=== PATIENT | male | born 1950 ===

== ENCOUNTER → 2022-12-05 | Outpatient (CLI) | payer MEDICARE, OTHER ==
[2022-12-05 12:56] VITALS: BP 119/69; PULSE 92; RESP 16; TEMP 98.6
--- NOTE | 2022-12-05 14:57 | P.PAINPG ---
PQRS Measure Charge Sheet Comment: HISTORY OF PRESENT ILLNESS: 72 yr old male as a referral from Dr Villagran presents today w severe and chronic neck pain secondary to DDD and facet arthropathy without myelopathy for evaluation. Pt states pain level is at 8/10 in intensity, constant, localized in the lower cervical spine, sharp, burning in character w shooting pain towards the BUEs. Pain is provoked by over activity. Pain is alleviated by PT in the past, chiropractic treatments and massage therapy in 2020, home exercise as tolerated, meds (Douglass, Ibu), heat, ice, topicals, repositioning and rest. PMH: OA, GERD, HTN, Hyperlipidemia, DM II, PSH: Denies SH: Negative x3 FH: Non contributory All: See list Meds: See list REVIEW OF ORGAN SYSTEMS: CONSTITUTIONAL: No fevers or chills. No recent weight loss. NEUROLOGICAL: + numbness and tingling along the distal extremities. No seizure disorders or headaches. MUSCULOSKELETAL: + pain PSYCHIATRIC: Denies current depression or suicidal thoughts. Physical Examinations : Constitutional : Cooperative , not in acute distress . Neurologic : Cranial nerve II to XII intact. No focal neurological deficits. Psychiatric : alert & oriented x 3. Matching mood & appropriate affect. Judgment & insight intact. Musculoskeletal : Cervical Spine Motor strength in the deltoid and biceps: Normal right side. Normal Left side Motor strength biceps and the wrist extensors: Normal right side . Normal left side Motor strength in the triceps muscle: Normal right side. Normal left side Deep tendon reflexes: Normal at the biceps. Normal at Brachioradialis. Normal at triceps Vertebral body tenderness to deep palpation over C6 Cervical facet loading test: positive bilaterally Spurling test: positive bilaterally Neck distraction test: positive bilaterally Bertha sign: positive bilaterally Lumbar spine Motor strength lower extremities ,thigh and legs 5/5 Right side , 5/5 Left side Deep tendon reflexes : Normal Knee Jerk. Normal Ankle Jerk Vertebral body tenderness over Lumbar facet Loading Test: positive Right / positive Left Range of motion of the lumbar spine Flexion 30 degrees, extension 10 degrees Straight Leg Raise test: Left/ Right positive at degree Deysi test: positive right / positive left. Severe tenderness over the Sacroiliac joint on the Right / Left sides Gaenslen test: positive bilaterally Seated flexion test: positive bilaterally. Sacral spine : Severe tenderness over the Sacroiliac joint: right side / left side Range of motion: Flexion of the lumbar spine <60 degrees Range of motion: Extension of the lumbar spine <20 degrees Gaenslen's Test positive Bridger's Test positive Deysi test: positive right side / left side Thigh Thrust Test Sacral Thrust Test Imaging: None on file Assessment/ Plan : Cervical DDD Recommendation of x ray cervical spine re: M50.30. May need additional testing if indicated. Admits to aspirin or anti- coagulant use or medical history of diabetes. Protocol for discontinuation/ continuation of medications smith procedure discussed. All questions answered. I have spent greater than 30 minutes on patient care today. Dr Ribeiro was available by phone for the evaluation of this patient. The time was used to review the medical records including relevant urine studies and Prescription history (MAPs), review of the available imaging, evaluation and examination of the patient, coordination of care with the medical staff and if applicable referring physicians, as well as creation of the medical record - Pain Location Neck Non-Pharmacological Interventions: Chiropractic Treatment, Heat, Home Exercise, Ice, Inactivity, Massage, Physical Therapy, Position/Reposition, Stretching Pharmacological Interventions: PRN Medication, Topical Medication Home Medications: Ambulatory Orders Aspirin EC [Ecotrin Low Dose] 81 mg PO DAILY 12/05/22 Ergocalciferol [Vitamin D2 (1250 Mcg = 91278 Iu)] 50,000 unit PO [id number] 12/05/22 HYDROcodone/APAP 10-325MG [[place] 10-325] 1 tab PO Q6HR PRN 12/05/22 Ibuprofen [Motrin] 800 mg PO Q8H 12/05/22 Isosorbide Dinitrate 5 mg PO BID 12/05/22 Isosorbide Mononitrate ER [Imdur] 30 mg PO DAILY 12/05/22 Lidocaine 5% Patch [Lidoderm] 1 patch TOPICAL DAILY 12/05/22 Nitroglycerin Sl Tabs [Nitrostat] 0.4 mg SUBLINGUAL Q5M PRN 12/05/22 Omeprazole [PriLOSEC] 20 mg PO AC-BID 12/05/22 carvediloL [Coreg] 3.125 mg PO BID 12/05/22 icosapent ethyL [Vascepa] 2 gm PO DAILY 12/05/22 metFORMIN HCL [Glucophage] 500 mg PO BID 12/05/22 Controlled Substance Measures - Controlled Substance Measures Is patient prescribed a controlled substance at discharge?: No
== END ==
LOC: PNWHC3 12:06
PROVIDERS: ATTEND Specialist
DX: M50.30 Other cervical disc degeneration, unspecified cervical region (principal); M19.90 Unspecified osteoarthritis, unspecified site; K21.9 Gastro-esophageal reflux disease without esophagitis; I10 Essential (primary) hypertension; E78.5 Hyperlipidemia, unspecified; E11.9 Type 2 diabetes mellitus without complications; Z79.82 Long term (current) use of aspirin; Z79.84 Long term (current) use of oral hypoglycemic drugs
CPT/HCPCS: 99202

== ENCOUNTER → 2022-12-05 | Outpatient (CLI) | payer MEDICARE, OTHER ==
--- NOTE | 2022-12-05 13:43 | XR ---
EXAMINATION TYPE: XR cervical spine limited DATE OF EXAM: 12/05/2022 1:34 PM INDICATION: Patient age:Male; 72 years old; Reason for study: M50.30 Cervical DD; COMPARISON: None TECHNIQUE: The cervical spine was imaged in frontal, lateral, odontoid and bilateral oblique. FINDINGS: The osseous structures show normal alignment without evidence of an acute fracture. Osteophyte format ion and degeneration changes most pronounced at C4-C6. The intervertebral disk spaces and straight mi ld narrowing at these levels. Pedicles are intact. Soft tissues are within normal limits. The odont oid appears intact. IMPRESSION: 1. No fracture or dislocation. 2. Mild degenerative disc disease changes of the cervical spine most proximal at C4-C6
== END | disposition home or self-care (01) ==
LOC: RADXRMAIN 13:10
PROVIDERS: ATTEND Physician Assistant Medical
DX: M50.322 Other cervical disc degeneration at C5-C6 level (principal)
CPT/HCPCS: 72040

== ENCOUNTER 2023-02-13 08:40 | Day surgery (SDC) | payer MEDICARE, OTHER ==
[2023-02-11 11:07] VITALS: BMI 30.2
[~2023-02-13 08:40] MED LIST: LACTATED RINGERS 1,000 ML IV SCH; LIDOCAINE 1% (10MG/ML) FOR IV START INTRADERMA PRN
[2023-02-13 09:16] VITALS: TEMP 97.7
[2023-02-13 09:30] LABS: Glucose,Whole Blood 104 mg/dL (70-110)
[2023-02-13] MEDS ORDERED: ROPIVACAINE 5 MG/ML 20 ML AMPULE ONE (09:33)
[2023-02-13] MEDS ORDERED: fentaNYL (PF) 50 MCG/ML 2 ML AMP ONE (09:33)
[2023-02-13] MEDS ORDERED: methylPREDNISolone ACETATE 40 MG/ML 1 ML VIAL ONE (09:33)
[2023-02-13] MEDS ORDERED: MIDAZOLAM 2 MG/2 ML VIAL ONE (09:33)
--- NOTE | 2023-02-13 10:01 | P.PCN ---
Date of Procedure: 02/13/23 Procedure(s) Performed: PREOPERATIVE DIAGNOSIS: 1-Cervical Spondylosis with Facet Arthropathy.without myelopathy. 2-cervical degenerative disc disease POSTOPERATIVE DIAGNOSIS: Same as preoperative diagnosis. PROCEDURES: Diagnostic bilateral C4 , C5 , and C6 medial branch blocks, with fluoroscopic guidance (fluoroscopy images available in radiology department ) ( to target the facet joint at bilateral C4- 5 , C5- 6 )# 1st ANESTHESIA:moderate sedation with Versed 2 mg , and fentanyl 50 micrograms. Sedation started 09:42 , end at 09:56 EBL: Minimal PROCEDURE INDICATION: The patient with neck pain secondary to cervical arthropathy unresponsive to more conservative treatments. PROCEDURE DESCRIPTION / TECHNIQUE: The patient was seen and identified in the preoperative area. Risks, benefits, complications, and alternatives were discussed with the patient, the patient agreed to proceed with the procedure and signed the consent. IV was started. Vital signs remained stable throughout the procedure. Patient was taken to the OR and time out was completed. The patient was placed in the prone position on the procedure table. A pillow was placed under the patients chest to increase the cervical interlaminar space. The cervical area was prepped and draped in the usual sterile fashion. Critical pause was taken. Vital signs were closely monitored during the procedure. Conscious sedation was used during the procedure to decrease patients anxiety. Using cross-table lateral fluoroscopy, the centroid of the trapezoid of right C4 , C5 and C6, was identified, marked, and localized with 1% lidocaine 1 ml at each level for skin and Sub Q infiltrations . Subsequently, a 22 G 3 spinal needle was advanced guided by fluoroscopy to the centroid of the trapezoid of Right C4 , C5, C6 . [place] tip position was confirmed at the centroid of the trapezoids of Right C4 , C5 ,C6 with anteroposterior fluoroscopy. Subsequently, 1.5 ml of preservative-free Ropivacaine 0.5% mixed with Depo- Medrol 20 mg and half ml of the mixture was injected after negative aspiration for blood and CSF. [place] was then removed intact the same procedure was repeated at the left C4 , C5 , and C6 levels. COMPLICATIONS: No acute complications. DISPOSITION / PLANS: The patient was placed in a supine position and transferred to the recovery area in a stable condition for observation and was discharged from the recovery room after meeting discharge criteria. Home discharge instructions given to the patient by the staff. The patient was reexamined prior to discharge. The patient will schedule a follow up in the clinic in 2-4 weeks.
[2023-02-13] MEDS ORDERED: IV FLUID CONTINUATION 1,000 ML IV ONE (10:03)
--- NOTE | 2023-02-13 10:07 | FL ---
Fluoroscopy INDICATION: Pain FINDINGS: Fluoroscopy time: 12 seconds. DAP: 0.39082 mGycm^2 Images obtained: 3. IMPRESSIONS: 1. Documentation of fluoroscopy.
[2023-02-13 10:42] VITALS: BP 122/76; PULSE 76; RESP 20
[2023-02-13] MEDS ORDERED: LACTATED RINGERS 1,000 ML IV SCH (10:44)
[2023-02-13] MEDS ORDERED: LIDOCAINE 1% (10MG/ML) FOR IV START INTRADERMA PRN (10:44)
== END 2023-02-13 10:30 | disposition home or self-care (01) ==
LOC: ORPAIN 08:40
PROVIDERS: ATTEND Specialist
DX: M50.322 Other cervical disc degeneration at C5-C6 level (principal); M47.812 Spondylosis without myelopathy or radiculopathy, cervical region
CPT/HCPCS: 99152; 64490; 64491; J2250; J1030; J3010; J2795

== ENCOUNTER → 2023-03-05 | Outpatient (CLI) | payer MEDICARE, OTHER ==
--- NOTE | 2023-03-05 14:59 | P.PAINPG ---
PQRS Measure Charge Sheet Comment: A 72 yr old male with a history of severe and chronic neck pain x 15 kyung secondary to cervical DDD and spondylosis with facet arthropathy without myelopathy presents today for evaluation s/p BL MBB C4-C5, C5-C6 #1. Pt states he experienced 85 % pain relief x 1 day s/p procedure. Pain level is provoked at 7/10 in intensity, constant, localized in the cervical spine, sharp in character w shooting towards the BUEs. Pain is provoked by lifting, rotation. Pain is alleviated with chiropractic treatments semi weekly w last visit 8 mo ago, PT x 6 wks in 2021 which didn't help, laying supine, heat, ice, repositioning and rest. Interventional pain procedures completed include BL MBB C4-C6 x1 Patient is currently on Icy Hot patches Patient denies any side effects of the medication(s), denies excessive drowsiness or sleepiness, denies suicidal ideation and reports that the current pain medication is helping to control the pain and improve activities of daily living. Patient denies any motor or sensory deficits. Patient denies any fever or night sweats, denies any change in the bowel movements or urination. Physical Examination: -Constitutional: Cooperative. Not in acute distress . - Neurologic: Cranial nerve II to XII intact. No focal neurological deficits. - Psychatric: Alert & oriented x 3. Matching mood & appropriate affect. Judgment and insight intact. - Musculoskeletal: Cervical spine: Muscle bulk/ tone/ strength in the bilateral upper extremities normal Vertebral body tenderness to palpation over Spurling test positive Distraction test positive Facet loading test positive TTP over BL C4-C5, C5-C6 facets Thoracic spine Muscle bulk / tone/ strength in the bilateral paraspinal muscles normal Vertebral body tender to palpation over Facet loading test positive TTP Lumbar spine: Motor bulk/ tone/ strength lower extremities , thigh and legs : 5/5 Deep tendon reflexes : Normal Knee Jerk. Normal Ankle Jerk . Vertebral body tenderness to palpation over Lumbar Facet Loading Test positive Straight Leg Raise: positive at 30 degrees right side/ left side Gaenslen's Test positive Sacral spine : Severe tenderness over the Sacroiliac joint: right side / left side Range of motion: Flexion of the lumbar spine <60 degrees Range of motion: Extension of the lumbar spine <20 degrees Gaenslen's Test positive R / L Deysi test: positive right side / left side Thigh Thrust Test positive R / L Sacral Thrust Test positive R/ L Assessment and plan: Chronic neck pain secondary to cervical DDD, spondylosis with facet arthropathy without myelopathy Recommendation of BL facet block of the medial branches C4-5, C6-6 #2. May need a series of injections, up until RFA, for optimal pain relief. Risks, benefits of procedure discussed and pt verbalized understanding. Admits to anticoagulant use or medical history of diabetes. Protocol for discontinuation/ continuation of medications smith procedure discussed. All questions answered. I have spent less than 30 minutes on patient care today. Dr Ribeiro was available by phone for the evaluation of this patient. The time was used to review the medical records including relevant urine studies and Prescription history (MAPs), review of the available imaging, evaluation and examination of the patient, coordination of care with the medical staff and if applicable referring physicians, as well as creation of the medical record PQRS Narrative: Hx Alcohol Use (MH) No Home Medications: Ambulatory Orders Aspirin EC [Ecotrin Low Dose] 81 mg PO DAILY 12/05/22 Ergocalciferol [Vitamin D2 (1250 Mcg = 44317 Iu)] 50,000 unit PO Q7D 12/05/22 Ibuprofen [Motrin] 800 mg PO Q8H 12/05/22 Isosorbide Dinitrate 5 mg PO BID 12/05/22 Lidocaine 5% Patch [Lidoderm] 1 patch TOPICAL DAILY PRN 12/05/22 Nitroglycerin Sl Tabs [Nitrostat] 0.4 mg SUBLINGUAL Q5M PRN 12/05/22 Omeprazole [PriLOSEC] 20 mg PO AC-BID 12/05/22 icosapent ethyL [Vascepa] 2 gm PO DAILY 12/05/22 metFORMIN HCL [Glucophage] 500 mg PO BID 12/05/22 HYDROcodone/APAP 7.5-325MG [[place] 7.5-325] 1 tab PO BID PRN 30 Days #60 tab 03/05/23 HYDROcodone/APAP 7.5-325MG [[place] 7.5-325] 1 tab PO BID PRN 30 Days #60 tab 03/05/23 Controlled Substance Measures - Controlled Substance Measures Is patient prescribed a controlled substance at discharge?: Yes When asked, does pt state using other controlled substances?: No If prescribed controlled substance>3 days was MAPS reviewed?: Yes If Rx opioid, was Start Talking consent form obtained?: Yes Was information provided regarding opioid addiction?: Yes
[2023-03-05 15:19] VITALS: BP 102/71; PULSE 72; RESP 18; TEMP 98
== END ==
LOC: PNWHC3 12:56
PROVIDERS: ATTEND Specialist
DX: M50.322 Other cervical disc degeneration at C5-C6 level (principal); M47.812 Spondylosis without myelopathy or radiculopathy, cervical region; G89.29 Other chronic pain; Z79.82 Long term (current) use of aspirin
CPT/HCPCS: 99211

== ENCOUNTER 2023-04-03 10:47 | Day surgery (SDC) | payer MEDICARE, OTHER ==
[2023-04-03 11:17] VITALS: TEMP 97.1
[2023-04-03 11:19] LABS: Glucose,Whole Blood 91 mg/dL (70-110)
[2023-04-03] MEDS ORDERED: MIDAZOLAM 2 MG/2 ML VIAL ONE (11:28)
[2023-04-03] MEDS ORDERED: ROPIVACAINE 5 MG/ML 20 ML AMPULE ONE (11:28)
[2023-04-03] MEDS ORDERED: fentaNYL (PF) 50 MCG/ML 2 ML AMP ONE (11:28)
[2023-04-03] MEDS ORDERED: methylPREDNISolone ACETATE 40 MG/ML 1 ML VIAL ONE (11:28)
--- NOTE | 2023-04-03 11:51 | P.PCN ---
Date of Procedure: 04/03/23 Procedure(s) Performed: PREOPERATIVE DIAGNOSIS: 1-Cervical Spondylosis with Facet Arthropathy.without myelopathy. 2-cervical degenerative disc disease POSTOPERATIVE DIAGNOSIS: Same as preoperative diagnosis. PROCEDURES: Diagnostic bilateral C4 , C5 , and C6 medial branch blocks, with fluoroscopic guidance (fluoroscopy images available in radiology department ) ( to target the facet joint at bilateral C4- 5 , C5- 6 )#2nd ANESTHESIA:moderate sedation with Versed 2 mg , and fentanyl 100 micrograms. Sedation started 1128, end at 1147 EBL: Minimal PROCEDURE INDICATION: The patient with neck pain secondary to cervical arthropathy unresponsive to more conservative treatments. PROCEDURE DESCRIPTION / TECHNIQUE: The patient was seen and identified in the preoperative area. Risks, benefits, complications, and alternatives were discussed with the patient, the patient agreed to proceed with the procedure and signed the consent. IV was started. Vital signs remained stable throughout the procedure. Patient was taken to the OR and time out was completed. The patient was placed in the lateral position on the procedure table. . The cervical area was prepped and draped in the usual sterile fashion. Critical pause was taken. Vital signs were closely monitored during the procedure. Conscious sedation was used during the procedure to decrease patients anxiety. Using cross-table lateral fluoroscopy, the centroid of the trapezoid of right C4 , C5 and C6, was identified, marked, and localized with 1% lidocaine 1 ml at each level for skin and Sub Q infiltrations . Subsequently, a 22 G 3 spinal needle was advanced guided by fluoroscopy to the centroid of the trapezoid of Right C4 , C5, C6 . [place] tip position was confirmed at the centroid of the trapezoids of Right C4 , C5 ,C6 with anteroposterior fluoroscopy. Subsequently, 1.5 ml of preservative-free Ropivacaine 0.5% mixed with Depo- Medrol 20 mg and half ml of the mixture was injected after negative aspiration for blood and CSF. [place] was then removed intact the same procedure was repeated at the left C4 , C5 , and C6 levels. COMPLICATIONS: No acute complications. DISPOSITION / PLANS: The patient was placed in a supine position and transferred to the recovery area in a stable condition for observation and was discharged from the recovery room after meeting discharge criteria. Home discharge instructions given to the patient by the staff. The patient was reexamined prior to discharge. The patient will schedule a follow up in the clinic in 2-4 weeks. note= patient placed in prone position was not able to visualize C6 vertebral for this reason the procedure was done and a lateral position
[2023-04-03 11:59] VITALS: RESP 18
[2023-04-03 12:13] VITALS: BP 119/78; PULSE 69
--- NOTE | 2023-04-03 12:44 | FL ---
Fluoroscopy INDICATION: Pain FINDINGS: Fluoroscopy time: 3 seconds. Total dose area product (DAP) in uGy*m?, mGy*cm? (or similar): 0.43204 Images obtained: 3. IMPRESSIONS: 1. Documentation of fluoroscopy.
== END 2023-04-03 12:54 | disposition home or self-care (01) ==
LOC: ORPAIN 10:47
PROVIDERS: ATTEND Specialist
DX: M50.322 Other cervical disc degeneration at C5-C6 level (principal); M47.812 Spondylosis without myelopathy or radiculopathy, cervical region

== ENCOUNTER → 2023-04-24 | Outpatient (CLI) | payer MEDICARE, OTHER ==
[2023-04-24 13:29] VITALS: BP 115/71; PULSE 72; RESP 18; TEMP 98
--- NOTE | 2023-04-24 14:40 | P.PAINPG ---
PQRS Measure Charge Sheet Comment: A 72 yr old male w daughter & granddaughter at side with a history of severe and chronic neck pain secondary to cervical DDD and spondylosis with facet arthropathy without myelopathy presents today for evaluation s/p BL MBB C4-C5, C5-C6 #2. Pt states he experienced 80 % pain relief x 2 days s/p procedure. Pain level is provoked at 8/10 in intensity, constant, localized in the cervical spine, sharp in character w shooting towards the BL shoulders and BL hands. Pain is provoked by lifting and hyperextension. Pain is alleviated with injections, medications, topical, PT x 6 wks in Jun 2022, chiropractic treatments in 2020, heat, ice, repositioning and rest. Interventional pain procedures completed include BL MBB C4-C6 x2 Patient is currently on [place] Patient denies any side effects of the medication(s), denies excessive drowsiness or sleepiness, denies suicidal ideation and reports that the current pain medication is helping to control the pain and improve activities of daily living. Patient denies any motor or sensory deficits. Patient denies any fever or night sweats, denies any change in the bowel movements or urination. Physical Examination: -Constitutional: Cooperative. Not in acute distress . - Neurologic: Cranial nerve II to XII intact. No focal neurological deficits. - Psychatric: Alert & oriented x 3. Matching mood & appropriate affect. Judgment and insight intact. - Musculoskeletal: Cervical spine: Muscle bulk/ tone/ strength in the bilateral upper extremities normal Vertebral body tenderness to palpation over Spurling test positive Distraction test positive Facet loading test positive over BL C4-C5, C5-C6 Thoracic spine Muscle bulk / tone/ strength in the bilateral paraspinal muscles normal Vertebral body tender to palpation over Facet loading test positive TTP Lumbar spine: Motor bulk/ tone/ strength lower extremities , thigh and legs : 5/5 Deep tendon reflexes : Normal Knee Jerk. Normal Ankle Jerk . Vertebral body tenderness to palpation over Lumbar Facet Loading Test positive Straight Leg Raise: positive at 30 degrees right side/ left side Gaenslen's Test positive Sacral spine : Severe tenderness over the Sacroiliac joint: right side / left side Range of motion: Flexion of the lumbar spine <60 degrees Range of motion: Extension of the lumbar spine <20 degrees Gaenslen's Test positive R / L Deysi test: positive right side / left side Thigh Thrust Test positive R / L Sacral Thrust Test positive R/ L Assessment and plan: Chronic neck pain secondary to cervical DDD, spondylosis with facet arthropathy without myelopathy Recommendation of BL RFA C4-C5, C5-C6. Pt exhibited sufficient and satisfactory pain relief w prior facet blocks of the medial branches. Risks, benefits of procedure discussed and pt verbalized understanding. Admits to anticoagulant use or medical history of diabetes. Protocol for discontinuation/ continuation of medications smith procedure discussed. Minimal anesthesia provided, if clinically indicated, consisting of Versed and Fentanyl. [place] 7.5/325mg #60 w 1 RF. All questions answered. I have spent less than 30 minutes on patient care today. Dr Ribeiro was available by phone for the evaluation of this patient. The time was used to review the medical records including relevant urine studies and Prescription history (MAPs), review of the available imaging, evaluation and examination of the patient, coordination of care with the medical staff and if applicable referring physicians, as well as creation of the medical record PQRS Narrative: Hx Alcohol Use (MH) No Home Medications: Ambulatory Orders Aspirin EC [Ecotrin Low Dose] 81 mg PO DAILY 12/05/22 Ergocalciferol [Vitamin D2 (1250 Mcg = 29130 Iu)] 50,000 unit PO Q7D 12/05/22 Isosorbide Dinitrate 5 mg PO BID 12/05/22 Lidocaine 5% Patch [Lidoderm] 1 patch TOPICAL DAILY PRN 12/05/22 Nitroglycerin Sl Tabs [Nitrostat] 0.4 mg SUBLINGUAL Q5M PRN 12/05/22 Omeprazole [PriLOSEC] 20 mg PO AC-BID 12/05/22 icosapent ethyL [Vascepa] 2 gm PO DAILY 12/05/22 metFORMIN HCL [Glucophage] 500 mg PO BID 12/05/22 HYDROcodone/APAP 7.5-325MG [[place] 7.5-325] 1 tab PO BID PRN 23 Days #45 tab 04/24/23 HYDROcodone/APAP 7.5-325MG [[place] 7.5-325] 1 tab PO BID PRN 30 Days #60 tab 04/24/23 Controlled Substance Measures - Controlled Substance Measures Is patient prescribed a controlled substance at discharge?: No
== END ==
LOC: PNWHC3 12:22
PROVIDERS: ATTEND Specialist
DX: M50.322 Other cervical disc degeneration at C5-C6 level (principal); M47.812 Spondylosis without myelopathy or radiculopathy, cervical region; G89.29 Other chronic pain; Z51.81 Encounter for therapeutic drug level monitoring
CPT/HCPCS: 80307; 80364; 99211

== ENCOUNTER → 2023-06-19 | Outpatient (CLI) | payer MEDICARE, OTHER ==
[2023-06-19 10:32] VITALS: BP 107/67; PULSE 59; RESP 14; TEMP 97.9
--- NOTE | 2023-06-19 14:48 | P.PAINPG ---
PQRS Measure Charge Sheet Comment: A 72 yr old male w daughter & granddaughter at side with a history of severe and chronic neck pain secondary to cervical DDD and spondylosis with facet arthropathy without myelopathy presents today for medication refills. Pt did not get cardiac clearance off of ASA to complete procedure. Was told he may have clearance within 1 yr. Pain level is provoked at 8/10 in intensity, constant, localized in the cervical spine, sharp in character w shooting towards the BL shoulders and BL hands. Pain is provoked by lifting and hyperextension. Pain is alleviated with injections, medications, topical, PT x 6 wks in Jun 2022, chiropractic treatments in 2020, heat, ice, repositioning and rest. Oswestry axial pain score of 37. Interventional pain procedures completed include BL MBB C4-C6 x2 Patient is currently on [place] Patient denies any side effects of the medication(s), denies excessive drowsiness or sleepiness, denies suicidal ideation and reports that the current pain medication is helping to control the pain and improve activities of daily living. Patient denies any motor or sensory deficits. Patient denies any fever or night sweats, denies any change in the bowel movements or urination. Physical Examination: -Constitutional: Cooperative. Not in acute distress . - Neurologic: Cranial nerve II to XII intact. No focal neurological deficits. - Psychatric: Alert & oriented x 3. Matching mood & appropriate affect. Judgment and insight intact. - Musculoskeletal: Cervical spine: Muscle bulk/ tone/ strength in the bilateral upper extremities normal Vertebral body tenderness to palpation over Spurling test positive Distraction test positive Facet loading test positive over BL C4-C5, C5-C6 Thoracic spine Muscle bulk / tone/ strength in the bilateral paraspinal muscles normal Vertebral body tender to palpation over Facet loading test positive TTP Lumbar spine: Motor bulk/ tone/ strength lower extremities , thigh and legs : 5/5 Deep tendon reflexes : Normal Knee Jerk. Normal Ankle Jerk . Vertebral body tenderness to palpation over Lumbar Facet Loading Test positive Straight Leg Raise: positive at 30 degrees right side/ left side Gaenslen's Test positive Sacral spine : Severe tenderness over the Sacroiliac joint: right side / left side Range of motion: Flexion of the lumbar spine <60 degrees Range of motion: Extension of the lumbar spine <20 degrees Gaenslen's Test positive R / L Deysi test: positive right side / left side Thigh Thrust Test positive R / L Sacral Thrust Test positive R/ L Assessment and plan: Chronic neck pain secondary to cervical DDD, spondylosis with facet arthropathy without myelopathy Recommendation of medication management. UDS reviewed and consistent. Opiate/ narcotic agreement up to date. [place] 10/325mg #60 w 1 RF. All questions answered. I have spent less than 30 minutes on patient care today. Dr Ribeiro was available by phone for the evaluation of this patient. The time was used to review the medical records including relevant urine studies and Prescription history (MAPs), review of the available imaging, evaluation and examination of the patient, coordination of care with the medical staff and if applicable referring physicians, as well as creation of the medical record PQRS Narrative: Hx Alcohol Use (MH) No Home Medications: Ambulatory Orders Aspirin EC [Ecotrin Low Dose] 81 mg PO DAILY 12/05/22 Ergocalciferol [Vitamin D2 (1250 Mcg = 49729 Iu)] 50,000 unit PO Q7D 12/05/22 Isosorbide Dinitrate 5 mg PO BID 12/05/22 Lidocaine 5% Patch [Lidoderm] 1 patch TOPICAL DAILY PRN 12/05/22 Nitroglycerin Sl Tabs [Nitrostat] 0.4 mg SUBLINGUAL Q5M PRN 12/05/22 Omeprazole [PriLOSEC] 20 mg PO AC-BID 12/05/22 icosapent ethyL [Vascepa] 2 gm PO DAILY 12/05/22 metFORMIN HCL [Glucophage] 500 mg PO BID 12/05/22 HYDROcodone/APAP 7.5-325MG [[place] 7.5-325] 1 tab PO BID PRN 23 Days #45 tab 04/24/23 HYDROcodone/APAP 7.5-325MG [[place] 7.5-325] 1 tab PO BID PRN 30 Days #60 tab 04/24/23 Controlled Substance Measures - Controlled Substance Measures Is patient prescribed a controlled substance at discharge?: Yes When asked, does pt state using other controlled substances?: No If prescribed controlled substance>3 days was MAPS reviewed?: Yes
== END ==
LOC: PNWHC3 09:39
PROVIDERS: ATTEND Specialist
DX: M50.321 Other cervical disc degeneration at C4-C5 level (principal); M50.322 Other cervical disc degeneration at C5-C6 level; M47.812 Spondylosis without myelopathy or radiculopathy, cervical region; G89.29 Other chronic pain; Z79.82 Long term (current) use of aspirin
CPT/HCPCS: 99211

== ENCOUNTER → 2023-10-08 | Outpatient (CLI) | payer MEDICARE, OTHER ==
[2023-10-08 14:16] VITALS: BP 104/64; PULSE 69; RESP 15; TEMP 98.4
--- NOTE | 2023-10-08 15:06 | P.PAINPG ---
PQRS Measure Charge Sheet Comment: A 73 yr old male with a history of severe and chronic neck pain x 2 yrs secondary to cervical DDD and spondylosis with facet arthropathy without myelopathy presents today for medication refills. Pain level is provoked at 8/10 in intensity, constant, predominantly axial and localized in the cervical spine, sharp in character w occasional shooting towards the BL shoulders and BL hands. Pain is provoked by lifting and hyperextension. Pain is alleviated with injections, medications, topical, PT x 6 wks in Jun 2022, chiropractic treatments in 2020, heat, ice, repositioning and rest. Interventional pain procedures completed include BL MBB C4-C6 x2 Patient is currently on [place] 10/325mg # Patient denies any side effects of the medication(s), denies excessive drowsiness or sleepiness, denies suicidal ideation and reports that the current pain medication is helping to control the pain and improve activities of daily living. Patient denies any motor or sensory deficits. Patient denies any fever or night sweats, denies any change in the bowel movements or urination. Physical Examination: -Constitutional: Cooperative. Not in acute distress . - Neurologic: Cranial nerve II to XII intact. No focal neurological deficits. - Psychatric: Alert & oriented x 3. Matching mood & appropriate affect. Judgmen t and insight intact. - Musculoskeletal: Cervical spine: Muscle bulk/ tone/ strength in the bilateral upper extremities normal Vertebral body tenderness to palpation over Spurling test positive Distraction test positive Facet loading test positive over BL C4-C5, C5-C6 Thoracic spine Muscle bulk / tone/ strength in the bilateral paraspinal muscles normal Vertebral body tender to palpation over Facet loading test positive TTP Lumbar spine: Motor bulk/ tone/ strength lower extremities , thigh and legs : 5/5 Deep tendon reflexes : Normal Knee Jerk. Normal Ankle Jerk . Vertebral body tenderness to palpation over Lumbar Facet Loading Test positive Straight Leg Raise: positive at 30 degrees right side/ left side Gaenslen's Test positive Sacral spine : Severe tenderness over the Sacroiliac joint: right side / left side Range of motion: Flexion of the lumbar spine <60 degrees Range of motion: Extension of the lumbar spine <20 degrees Gaenslen's Test positive R / L Deysi test: positive right side / left side Thigh Thrust Test positive R / L Sacral Thrust Test positive R/ L Assessment and plan: Chronic neck pain secondary to cervical DDD, spondylosis with facet arthropathy without myelopathy Recommendation of medication management. UDS reviewed and consistent. Opiate/ narcotic agreement up to date. [place] 10/325mg #0 w 1 RF. All questions answered. I have spent less than 30 minutes on patient care today. Dr Ribeiro was available by phone for the evaluation of this patient. The time was used to review the medical records including relevant urine studies and Prescription history (MAPs), review of the available imaging, evaluation and examination of the patient, coordination of care with the medical staff and if applicable referring physicians, as well as creation of the medical record PQRS Narrative: Narcotic Agreement Date Signed 08/14/23 Hx Alcohol Use (MH) No Home Medications: Ambulatory Orders Aspirin EC [Ecotrin Low Dose] 81 mg PO DAILY 12/05/22 Lidocaine 5% Patch [Lidoderm] 1 patch TOPICAL DAILY PRN 12/05/22 Nitroglycerin Sl Tabs [Nitrostat] 0.4 mg SUBLINGUAL Q5M PRN 12/05/22 Omeprazole [PriLOSEC] 20 mg PO AC-BID 12/05/22 metFORMIN HCL [Glucophage] 500 mg PO BID 12/05/22 HYDROcodone/APAP 7.5-325MG [[place] 7.5-325] 1 tab PO BID PRN 23 Days #45 tab 04/24/23 HYDROcodone/APAP 7.5-325MG [[place] 7.5-325] 1 tab PO BID PRN 30 Days #60 tab 04/24/23 Clopidogrel [Plavix] 75 mg PO DAILY 06/19/23 Linaclotide [Linzess] 290 mcg PO DAILY 06/19/23 Metoprolol Succinate (ER) [Toprol Xl] 25 mg PO DAILY 06/19/23 [place]-3 Fatty Acids/Fish Oil [[place]-3 Fish Oil 1,200 mg Sfgl] 1 each PO BID 06/19/23 Rosuvastatin [Crestor] 20 mg PO DAILY 06/19/23 icosapent ethyL [Vascepa] 2 gm PO BID 06/19/23 HYDROcodone/APAP 10-325MG [[place] 10-325] 1 tab PO BID PRN 30 Days #60 tab 10/08/23 HYDROcodone/APAP 10-325MG [[place] 10-325] 1 tab PO BID PRN 30 Days #60 tab 10/08/23 Controlled Substance Measures - Controlled Substance Measures Is patient prescribed a controlled substance at discharge?: Yes When asked, does pt state using other controlled substances?: No If prescribed controlled substance>3 days was MAPS reviewed?: Yes
== END ==
LOC: PNWHC3 12:56
PROVIDERS: ATTEND Specialist
DX: M50.321 Other cervical disc degeneration at C4-C5 level (principal); M50.322 Other cervical disc degeneration at C5-C6 level; M47.812 Spondylosis without myelopathy or radiculopathy, cervical region; G89.29 Other chronic pain; Z79.82 Long term (current) use of aspirin
CPT/HCPCS: 99211

== ENCOUNTER → 2023-12-25 | Outpatient (CLI) | payer MEDICARE, OTHER ==
[2023-12-25 14:05] VITALS: BP 118/76; PULSE 74; RESP 16; TEMP 98.1
--- NOTE | 2023-12-25 14:37 | P.PAINPG ---
Objective - Vital Signs Vital signs: Intake & Output 12/24/23 12/25/23 12/25/23 18:59 06:59 18:59 Weight 89.811 kg PQRS Measure Charge Sheet Comment: A 73 yr old male with a history of severe and chronic neck pain x 2 yrs secondary to cervical DDD and spondylosis with facet arthropathy without myelopathy presents today for medication refills. Pain level is provoked at 8/10 in intensity, constant, predominantly axial and localized in the cervical spine, sharp in character w occasional shooting towards the BL shoulders and BL hands. Pain is provoked by lifting and hyperextension. Pain is alleviated with injections, medications, topical, PT x 6 wks in Jun 2022, chiropractic treatments in 2020, heat, ice, repositioning and rest. Interventional pain procedures completed include BL MBB C4-C6 x2 Patient is currently on [place] 10/325mg # Patient denies any side effects of the medication(s), denies excessive drowsiness or sleepiness, denies suicidal ideation and reports that the current pain medication is helping to control the pain and improve activities of daily living. Patient denies any motor or sensory deficits. Patient denies any fever or night sweats, denies any change in the bowel movements or urination. Physical Examination: -Constitutional: Cooperative. Not in acute distress . - Neurologic: Cranial nerve II to XII intact. No focal neurological deficits. - Psychatric: Alert & oriented x 3. Matching mood & appropriate affect. Judgment and insight intact. - Musculoskeletal: Cervical spine: Muscle bulk/ tone/ strength in the bilateral upper extremities normal Vertebral body tenderness to palpation over Spurling test positive Distraction test positive Facet loading test positive over BL C4-C5, C5-C6 Thoracic spine Muscle bulk / tone/ strength in the bilateral paraspinal muscles normal Vertebral body tender to palpation over Facet loading test positive TTP Lumbar spine: Motor bulk/ tone/ strength lower extremities , thigh and legs : 5/5 Deep tendon reflexes : Normal Knee Jerk. Normal Ankle Jerk . Vertebral body tenderness to palpation over Lumbar Facet Loading Test positive Straight Leg Raise: positive at 30 degrees right side/ left side Gaenslen's Test positive Sacral spine : Severe tenderness over the Sacroiliac joint: right side / left side Range of motion: Flexion of the lumbar spine <60 degrees Range of motion: Extension of the lumbar spine <20 degrees Gaenslen's Test positive R / L Deysi test: positive right side / left side Thigh Thrust Test positive R / L Sacral Thrust Test positive R/ L Assessment and plan: Chronic neck pain secondary to cervical DDD, spondylosis with facet arthropathy without myelopathy Recommendation of medication management. UDS fr 04/24/23 reviewed and consistent. Recollected UDS 12/25/23. Opiate/ narcotic agreement up to date. [place] 10/325mg #60 and Robaxin 750mg #60 w 1 RF. All questions answered. I have spent less than 30 minutes on patient care today. Dr Ribeiro was available by phone for the evaluation of this patient. The time was used to review the medical records including relevant urine studies and Prescription history (MAPs), review of the available imaging, evaluation and examination of the patient, coordination of care with the medical staff and if applicable referring physicians, as well as creation of the medical record - Pain Location Bilateral Lower Neck Non-Pharmacological Interventions: Physical Therapy Pharmacological Interventions: PRN Medication, Scheduled Medication, Topical Medication PQRS Narrative: Narcotic Agreement Date Signed 08/14/23 Hx Alcohol Use (MH) No Home Medications: Ambulatory Orders Aspirin EC [Ecotrin Low Dose] 81 mg PO DAILY 12/05/22 Lidocaine 5% Patch [Lidoderm] 1 patch TOPICAL DAILY PRN 12/05/22 Nitroglycerin Sl Tabs [Nitrostat] 0.4 mg SUBLINGUAL Q5M PRN 12/05/22 Omeprazole [PriLOSEC] 20 mg PO AC-BID 12/05/22 metFORMIN HCL [Glucophage] 500 mg PO BID 12/05/22 Clopidogrel [Plavix] 75 mg PO DAILY 06/19/23 Linaclotide [Linzess] 290 mcg PO DAILY 06/19/23 Metoprolol Succinate (ER) [Toprol Xl] 25 mg PO DAILY 06/19/23 [place]-3 Fatty Acids/Fish Oil [[place]-3 Fish Oil 1,200 mg Sfgl] 1 each PO BID 06/19/23 Rosuvastatin [Crestor] 20 mg PO DAILY 06/19/23 icosapent ethyL [Vascepa] 2 gm PO BID 06/19/23 HYDROcodone/APAP 10-325MG [[place] 10-325] 1 tab PO BID PRN 30 Days #60 tab 12/25/23 HYDROcodone/APAP 10-325MG [[place] 10-325] 1 tab PO BID PRN 30 Days #60 tab 12/25/23 methocarbamoL [Robaxin-750] 750 mg PO BID PRN 30 Days #60 tab 12/25/23 Controlled Substance Measures - Controlled Substance Measures Is patient prescribed a controlled substance at discharge?: Yes When asked, does pt state using other controlled substances?: No If prescribed controlled substance>3 days was MAPS reviewed?: Yes
== END ==
LOC: PNWHC3 12:49
PROVIDERS: ATTEND Specialist
DX: M50.321 Other cervical disc degeneration at C4-C5 level (principal); M50.322 Other cervical disc degeneration at C5-C6 level; M47.812 Spondylosis without myelopathy or radiculopathy, cervical region; G89.29 Other chronic pain; Z79.82 Long term (current) use of aspirin
CPT/HCPCS: 80307; 99212

== ENCOUNTER → 2024-02-19 | Outpatient (CLI) | payer MEDICARE, OTHER ==
[2024-02-19 13:41] VITALS: BP 107/71; PULSE 74; RESP 16; TEMP 98.1
--- NOTE | 2024-02-19 14:03 | P.PAINPG ---
PQRS Measure Charge Sheet Comment: A 73 yr old male with a history of severe and chronic neck pain x 2 yrs secondary to cervical DDD and spondylosis with facet arthropathy without myelopathy presents today for medication refills. Pain level is provoked at 7 /10 in intensity, constant, predominantly axial and localized in the cervical spine, sharp in character w occasional shooting towards the BL shoulders and BL hands. Pain is provoked by lifting and hyperextension. Pain is alleviated with injections, medications, topical, PT x 6 wks in Jun 2022, chiropractic treatments in 2020, heat, ice, repositioning and rest. Interventional pain procedures completed include BL MBB C4-C6 x2 Patient is currently on [place] 10/325mg # Patient denies any side effects of the medication(s), denies excessive drowsiness or sleepiness, denies suicidal ideation and reports that the current pain medication is helping to control the pain and improve activities of daily living. Patient denies any motor or sensory deficits. Patient denies any fever or night sweats, denies any change in the bowel movements or urination. Physical Examination: -Constitutional: Cooperative. Not in acute distress . - Neurologic: Cranial nerve II to XII intact. No focal neurological deficits. - Psychatric: Alert & oriented x 3. Matching mood & appropriate affect. Judgmen t and insight intact. - Musculoskeletal: Cervical spine: Muscle bulk/ tone/ strength in the bilateral upper extremities normal Vertebral body tenderness to palpation over Spurling test positive Distraction test positive Facet loading test positive over BL C4-C5, C5-C6 Thoracic spine Muscle bulk / tone/ strength in the bilateral paraspinal muscles normal Vertebral body tender to palpation over Facet loading test positive TTP Lumbar spine: Motor bulk/ tone/ strength lower extremities , thigh and legs : 5/5 Deep tendon reflexes : Normal Knee Jerk. Normal Ankle Jerk . Vertebral body tenderness to palpation over Lumbar Facet Loading Test positive Straight Leg Raise: positive at 30 degrees right side/ left side Gaenslen's Test positive Sacral spine : Severe tenderness over the Sacroiliac joint: right side / left side Range of motion: Flexion of the lumbar spine <60 degrees Range of motion: Extension of the lumbar spine <20 degrees Gaenslen's Test positive R / L Deysi test: positive right side / left side Thigh Thrust Test positive R / L Sacral Thrust Test positive R/ L Assessment and plan: Chronic neck pain secondary to cervical DDD, spondylosis with facet arthropathy without myelopathy Recommendation of medication management. UDS fr 12/25/23 reviewed and consistent. Opiate/ narcotic agreement up to date. [place] 10/325mg #60 and Robaxin 750mg #60 w [address] Sutherland re: possible CTS Contact information provided. All questions answered. I have spent less than 30 minutes on patient care today. Dr Ribeiro was available by phone for the evaluation of this patient. The time was used to review the medical records including relevant urine studies and Prescription history (MAPs), review of the available imaging, evaluation and examination of the patient, coordination of care with the medical staff and if applicable referring physicians, as well as creation of the medical record PQRS Narrative: Narcotic Agreement Date Signed 08/14/23 Hx Alcohol Use (MH) No Home Medications: Ambulatory Orders Aspirin EC [Ecotrin Low Dose] 81 mg PO DAILY 12/05/22 Lidocaine 5% Patch [Lidoderm] 1 patch TOPICAL DAILY PRN 12/05/22 Nitroglycerin Sl Tabs [Nitrostat] 0.4 mg SUBLINGUAL Q5M PRN 12/05/22 Omeprazole [PriLOSEC] 20 mg PO AC-BID 12/05/22 metFORMIN HCL [Glucophage] 500 mg PO BID 12/05/22 Clopidogrel [Plavix] 75 mg PO DAILY 06/19/23 Linaclotide [Linzess] 290 mcg PO DAILY 06/19/23 Metoprolol Succinate (ER) [Toprol Xl] 25 mg PO DAILY 06/19/23 [place]-3 Fatty Acids/Fish Oil [[place]-3 Fish Oil 1,200 mg Sfgl] 1 each PO BID 06/19/23 Rosuvastatin [Crestor] 20 mg PO DAILY 06/19/23 icosapent ethyL [Vascepa] 2 gm PO BID 06/19/23 HYDROcodone/APAP 10-325MG [[place] 10-325] 1 tab PO BID PRN 30 Days #60 tab 02/19/24 HYDROcodone/APAP 10-325MG [[place] 10-325] 1 tab PO BID PRN 30 Days #60 tab 02/19/24 HYDROcodone/APAP 10-325MG [[place] 10-325] 1 tab PO BID PRN 30 Days #60 tab 02/19/24 methocarbamoL [Robaxin-750] 750 mg PO BID PRN 30 Days #60 tab 02/19/24 Controlled Substance Measures - Controlled Substance Measures Is patient prescribed a controlled substance at discharge?: Yes When asked, does pt state using other controlled substances?: No If prescribed controlled substance>3 days was MAPS reviewed?: Yes
== END ==
LOC: PNWHC3 12:37
PROVIDERS: ATTEND Specialist
DX: M50.321 Other cervical disc degeneration at C4-C5 level (principal); M50.322 Other cervical disc degeneration at C5-C6 level; M47.812 Spondylosis without myelopathy or radiculopathy, cervical region; G89.29 Other chronic pain
CPT/HCPCS: 99211

== ENCOUNTER → 2024-04-15 | Outpatient (CLI) | payer MEDICARE, OTHER ==
[2024-04-15 14:01] VITALS: BP 111/72; PULSE 67; RESP 16
--- NOTE | 2024-04-15 14:53 | P.PAINPG ---
Objective - Vital Signs Vital signs: Vital Signs Temp Pulse Resp 16 04/15/24 13:24 BP Pulse Ox FiO2 PQRS Measure Charge Sheet Mode of Arrival: Ambulatory Comment: A 73 yr old male with a history of severe and chronic neck pain x 2 yrs secondary to cervical DDD and spondylosis with facet arthropathy without myelopathy presents today for medication refills. Pain level is provoked at 7 /10 in intensity, constant, predominantly axial and localized in the cervical spine, sharp in character w occasional shooting towards the head. Pain is provoked by lifting and hyperextension. Pain is alleviated with injections, medications, topical, PT x 5 wks which ended in Feb 2024, physician guided exercises/ stretches daily since Feb 2024, chiropractic treatments in 2020, heat, ice, repositioning and rest. Cervical disability score of 26. Interventional pain procedures completed include BL MBB C4-C6 x2 Patient is currently on [place] 10/325mg # Patient denies any side effects of the medication(s), denies excessive drowsiness or sleepiness, denies suicidal ideation and reports that the current pain medication is helping to control the pain and improve activities of daily living. Patient denies any motor or sensory deficits. Patient denies any fever or night sweats, denies any change in the bowel movements or urination. Physical Examination: -Constitutional: Cooperative. Not in acute distress . - Neurologic: Cranial nerve II to XII intact. No focal neurological deficits. - Psychatric: Alert & oriented x 3. Matching mood & appropriate affect. Judgment and insight intact. - Musculoskeletal: Cervical spine: Muscle bulk/ tone/ strength in the bilateral upper extremities normal Vertebral body tenderness to palpation over Spurling test positive Distraction test positive Facet loading test positive over BL C4-C5, C5-C6 Thoracic spine Muscle bulk / tone/ strength in the bilateral paraspinal muscles normal Vertebral body tender to palpation over Facet loading test positive TTP Lumbar spine: Motor bulk/ tone/ strength lower extremities , thigh and legs : 5/5 Deep tendon reflexes : Normal Knee Jerk. Normal Ankle Jerk . Vertebral body tenderness to palpation over Lumbar Facet Loading Test positive Straight Leg Raise: positive at 30 degrees right side/ left side Gaenslen's Test positive Sacral spine : Severe tenderness over the Sacroiliac joint: right side / left side Range of motion: Flexion of the lumbar spine <60 degrees Range of motion: Extension of the lumbar spine <20 degrees Gaenslen's Test positive R / L Deysi test: positive right side / left side Thigh Thrust Test positive R / L Sacral Thrust Test positive R/ L Assessment and plan: Chronic neck pain secondary to cervical DDD, spondylosis with facet arthropathy without myelopathy Recommendation of medication management. UDS fr 12/25/23 reviewed and consistent. Opiate/ narcotic agreement up to date. [place] 10/325mg #60 and Robaxin 750mg #60 w [address] Sutherland re: possible CTS Contact information provided. All questions answered. I have spent less than 30 minutes on patient care today. Dr Ribeior was available by phone for the evaluation of this patient. The time was used to review the medical records including relevant urine studies and Prescription history (MAPs), review of the available imaging, evaluation and examination of the patient, coordination of care with the medical staff and if applicable r eferring physicians, as well as creation of the medical record - Pain Location Bilateral Lower Back Non-Pharmacological Interventions: Heat, Ice, Physical Therapy, Position/Reposition, Sitting Pharmacological Interventions: PRN Medication, Scheduled Medication, Topical Medication PQRS Narrative: Narcotic Agreement Date Signed 08/14/23 Pain Intensity [Bilateral 7 Lower Back] Scale Used Numeric (1 - 10) Hx Alcohol Use (MH) No Home Medications: Ambulatory Orders Aspirin EC [Ecotrin Low Dose] 81 mg PO DAILY 12/05/22 Lidocaine 5% Patch [Lidoderm] 1 patch TOPICAL DAILY PRN 12/05/22 Nitroglycerin Sl Tabs [Nitrostat] 0.4 mg SUBLINGUAL Q5M PRN 12/05/22 Omeprazole [PriLOSEC] 20 mg PO AC-BID 12/05/22 metFORMIN HCL [Glucophage] 500 mg PO BID 12/05/22 Clopidogrel [Plavix] 75 mg PO DAILY 06/19/23 Linaclotide [Linzess] 290 mcg PO DAILY 06/19/23 Metoprolol Succinate (ER) [Toprol Xl] 25 mg PO DAILY 06/19/23 [place]-3 Fatty Acids/Fish Oil [[place]-3 Fish Oil 1,200 mg Sfgl] 1 each PO BID 06/19/23 Rosuvastatin [Crestor] 20 mg PO DAILY 06/19/23 icosapent ethyL [Vascepa] 2 gm PO BID 06/19/23 HYDROcodone/APAP 10-325MG [[place] 10-325] 1 tab PO BID PRN 30 Days #60 tab 02/19/24 HYDROcodone/APAP 10-325MG [[place] 10-325] 1 tab PO BID PRN 30 Days #60 tab 04/15/24 HYDROcodone/APAP 10-325MG [[place] 10-325] 1 tab PO BID PRN 30 Days #60 tab 04/15/24 tiZANidine [Zanaflex] 4 mg PO Q6HR PRN 30 Days #90 tab 04/15/24 Controlled Substance Measures - Controlled Substance Measures Is patient prescribed a controlled substance at discharge?: Yes When asked, does pt state using other controlled substances?: No If prescribed controlled substance>3 days was MAPS reviewed?: Yes
== END ==
LOC: PNWHC3 12:47
PROVIDERS: ATTEND Specialist
DX: M50.321 Other cervical disc degeneration at C4-C5 level (principal); M50.322 Other cervical disc degeneration at C5-C6 level; M47.812 Spondylosis without myelopathy or radiculopathy, cervical region
CPT/HCPCS: 99211

== ENCOUNTER → 2024-08-02 | Outpatient (CLI) | payer MEDICARE, OTHER ==
[2024-08-02 12:38] VITALS: BP 110/72; PULSE 56; RESP 18
--- NOTE | 2024-08-02 15:12 | P.PAINPG ---
PQRS Measure Charge Sheet Comment: A 73 yr old male with a history of severe and chronic neck pain x 2 yrs secondary to cervical DDD and spondylosis with facet arthropathy without myelopathy presents today for medication refills. Pain level is provoked at 8 /10 in intensity, constant, predominantly axial and localized in the cervicothoracic spine, sharp in character w occasional shooting towards the shoulders. Pain is provoked by lifting and hyperextension. Pain is alleviated with injections, medications, topical, PT x 5 wks which ended in Feb 2024, physician guided exercises/ stretches daily since Feb 2024, chiropractic treatments in 2020, heat, ice, repositioning and rest. Will have TPIs tomorrow Interventional pain procedures completed include BL MBB C4-C6 x2 Patient is currently on [place] 10/325mg #60, Zanaflex Patient denies any side effects of the medication(s), denies excessive drowsiness or sleepiness, denies suicidal ideation and reports that the current pain medication is helping to control the pain and improve activities of daily living. Patient denies any motor or sensory deficits. Patient denies any fever or night sweats, denies any change in the bowel movements or urination. Physical Examination: -Constitutional: Cooperative. Not in acute distress . - Neurologic: Cranial nerve II to XII intact. No focal neurological deficits. - Psychatric: Alert & oriented x 3. Matching mood & appropriate affect. Judgment and insight intact. - Musculoskeletal: Cervical spine: Muscle bulk/ tone/ strength in the bilateral upper extremities normal Vertebral body tenderness to palpation over Spurling test positive Distraction test positive Facet loading test positive over BL C4-C5, C5-C6 Thoracic spine Muscle bulk / tone/ strength in the bilateral paraspinal muscles normal Vertebral body tender to palpation over Taut bands w twitch response over BL T1-T6 Facet loading test positive TTP Lumbar spine: Motor bulk/ tone/ strength lower extremities , thigh and legs : 5/5 Deep tendon reflexes : Normal Knee Jerk. Normal Ankle Jerk . Vertebral body tenderness to palpation over Lumbar Facet Loading Test positive Straight Leg Raise: positive at 30 degrees right side/ left side Gaenslen's Test positive Sacral spine : Severe tenderness over the Sacroiliac joint: right side / left side Range of motion: Flexion of the lumbar spine <60 degrees Range of motion: Extension of the lumbar spine <20 degrees Gaenslen's Test positive R / L Deysi test: positive right side / left side Thigh Thrust Test positive R / L Sacral Thrust Test positive R/ L Assessment and plan: Chronic neck pain secondary to radiculopathy, spondylosis with facet arthropathy without myelopathy Recommendation of medication management. UDS fr 12/25/23 reviewed and consistent. Opiate/ narcotic agreement up to date. [place] 10/325mg #60 and Zanaflex 4mg #60 w [address] Sutherland re: possible CTS Contact information provided. All questions answered. I have spent less than 30 minutes on patient care today. Dr Ribeiro was available by phone for the evaluation of this patient. The time was used to review the medical records including relevant urine studies and Prescription history (MAPs), review of the available imaging, evaluation and examination of the patient, coordination of care with the medical staff and if applicable referring physicians, as well as creation of the medical record - Pain Location Upper Back Pharmacological Interventions: PRN Medication PQRS Narrative: Narcotic Agreement Date Signed 08/14/23 Hx Alcohol Use (MH) No Home Medications: Ambulatory Orders Aspirin EC [Ecotrin Low Dose] 81 mg PO DAILY 12/05/22 Lidocaine 5% Patch [Lidoderm] 1 patch TOPICAL DAILY PRN 12/05/22 Nitroglycerin Sl Tabs [Nitrostat] 0.4 mg SUBLINGUAL Q5M PRN 12/05/22 Omeprazole [PriLOSEC] 20 mg PO AC-BID 12/05/22 metFORMIN HCL [Glucophage] 500 mg PO BID 12/05/22 Clopidogrel [Plavix] 75 mg PO DAILY 06/19/23 Linaclotide [Linzess] 290 mcg PO DAILY PRN 06/19/23 Metoprolol Succinate (ER) [Toprol Xl] 25 mg PO DAILY 06/19/23 [place]-3 Fatty Acids/Fish Oil [[place]-3 Fish Oil 1,200 mg Sfgl] 1 each PO BID 06/19/23 Rosuvastatin [Crestor] 20 mg PO DAILY 06/19/23 icosapent ethyL [Vascepa] 2 gm PO BID 06/19/23 HYDROcodone/APAP 10-325MG [[place] 10-325] 1 tab PO BID PRN 30 Days #60 tab 08/02/24 HYDROcodone/APAP 10-325MG [[place] 10-325] 1 tab PO BID PRN 30 Days #60 tab 08/02/24 HYDROcodone/APAP 10-325MG [[place] 10-325] 1 tab PO BID PRN 30 Days #60 tab 08/02/24 tiZANidine [Zanaflex] 4 mg PO Q6HR PRN 30 Days #90 tab 08/02/24 Controlled Substance Measures - Controlled Substance Measures Is patient prescribed a controlled substance at discharge?: Yes When asked, does pt state using other controlled substances?: No If prescribed controlled substance>3 days was MAPS reviewed?: Yes
== END ==
LOC: PNWHC3 11:50
PROVIDERS: ATTEND Specialist
DX: M47.23 Other spondylosis with radiculopathy, cervicothoracic region (principal)
CPT/HCPCS: 99211

== ENCOUNTER 2024-08-03 09:27 | Day surgery (SDC) | payer MEDICARE, OTHER ==
[~2024-08-03 09:27] MED LIST changes: -LIDOCAINE 1% (10MG/ML) FOR IV START INTRADERMA PRN
[2024-08-03 09:54] VITALS: RESP 16; TEMP 97.8
[2024-08-03 10:01] LABS: Glucose,Whole Blood 102 mg/dL (70-110)
[2024-08-03] MEDS ORDERED: ROPIVACAINE 5MG/ML 20ML VIAL ONE (10:21)
[2024-08-03] MEDS ORDERED: TRIAMCINOLONE ACETONIDE 40 MG/ML 1 ML VIAL ONE (10:21)
--- NOTE | 2024-08-03 10:28 | P.PCN ---
Date of Procedure: 08/03/24 Surgeon: Alysa Mendoza Pathology: none sent Condition: stable Disposition: PACU Description of Procedure: Pre and postop diagnosis: Myofascial pain in the thoracic paravertebral musculature Procedure name: Trigger point injection the thoracic paravertebral musculature from T2 to T8 Anesthesia :none Physician: Alysa Mendoza MD Description of procedure: The patient was seen in preop holding area, consent was obtained, the trigger points were marked on skin. Then the patient was brought into the procedure room and placed in prone position. Skin was prepped with ChloraPrep and draped in a sterile manner. Then I used 25-gauge 1-1/2 inch needle to go through the skin and into the trigger points and injected 1 mL of ropivacaine 0.5% mixed with 40 mg of Kenalog in a solution of 9 MLS of ropivacaine 0.5% +40 mg of Kenalog. 1 mL of the solution was injected at each trigger point with a total of trigger points injected in the Thoracic paravertebral musculature . . Patient tolerated procedure well.
[2024-08-03 10:48] VITALS: BP 123/78; PULSE 63
== END 2024-08-03 11:02 | disposition home or self-care (01) ==
LOC: ORPAIN 09:27
PROVIDERS: ATTEND Hospitalist
DX: M79.18 Myalgia, other site (principal); I25.10 Atherosclerotic heart disease of native coronary artery without angina pectoris; Z79.82 Long term (current) use of aspirin; Z79.02 Long term (current) use of antithrombotics/antiplatelets
CPT/HCPCS: 20553

== ENCOUNTER → 2024-08-19 | Outpatient (CLI) | payer MEDICARE, OTHER ==
[2024-08-19 11:09] VITALS: BP 110/69; PULSE 67; RESP 16
--- NOTE | 2024-08-19 12:26 | XR ---
Cervical spine. HISTORY: Neck pain COMPARISON: 12/05/2022. TECHNIQUE: 3 views of the cervical spine were obtained. FINDINGS: The craniovertebral junction relationship and prevertebral soft tissues are normal. Cervical vertebral segments are normal in height and alignment and there is no fracture or subluxatio n. There is moderate to marked disc space narrowing and spondylosis at the C4-5 and C5-6 levels. There i s mild disc space narrowing at the C6-7 level. There is been no interval change compared to previous. The facet joints are intact. There is moderate degeneration of the humeral joints in the lower cervi constance spine. IMPRESSION: Multilevel degenerative disc disease in lower cervical spine unchanged compared to previous. No acute abnormality seen. [facility], , 08/19/2024 12:23 PM
--- NOTE | 2024-08-19 15:02 | P.PAINPG ---
PQRS Measure Charge Sheet Comment: A 74 yr old male with a history of severe and chronic neck pain x 2 yrs secondary to cervical DDD and spondylosis with facet arthropathy without myelopathy presents today for medication refills and evaluation s/p BL TPIs T2- T8. Pt states he experienced % pain relief x 3 wks s/p procedure. Pain level is provoked at 8 /10 in intensity, constant, predominantly axial and localized in the cervicothoracic spine, sharp in character w occasional shooting towards the shoulders. Pain is provoked by lifting and hyperextension. Pain is alleviated with injections, medications, topical, PT x 5 wks which ended in Feb 2024, physician guided exercises/ stretches daily since Feb 2024, chiropractic treatments in 2020, heat, ice, repositioning and rest. Interventional pain procedures completed include BL MBB C4-C6 x2, BL TPIs T2-T8 x1 Patient is currently on [place] 10/325mg #60, Zanaflex Patient denies any side effects of the medication(s), denies excessive drowsiness or sleepiness, denies suicidal ideation and reports that the current pain medication is helping to control the pain and improve activities of daily living. Patient denies any motor or sensory deficits. Patient denies any fever or night sweats, denies any change in the bowel movements or urination. Physical Examination: -Constitutional: Cooperative. Not in acute distress . - Neurologic: Cranial nerve II to XII intact. No focal neurological deficits. - Psychatric: Alert & oriented x 3. Matching mood & appropriate affect. Judgment and insight intact. - Musculoskeletal: Cervical spine: Muscle bulk/ tone/ strength in the bilateral upper extremities normal Vertebral body tenderness to palpation over Spurling test positive Distraction test positive Facet loading test positive over BL C4-C5, C5-C6 Thoracic spine Muscle bulk / tone/ strength in the bilateral paraspinal muscles normal Vertebral body tender to palpation over Taut bands w twitch response over BL T1-T6 Facet loading test positive TTP Lumbar spine: Motor bulk/ tone/ strength lower extremities , thigh and legs : 5/5 Deep tendon reflexes : Normal Knee Jerk. Normal Ankle Jerk . Vertebral body tenderness to palpation over Lumbar Facet Loading Test positive Straight Leg Raise: positive at 30 degrees right side/ left side Gaenslen's Test positive Sacral spine : Severe tenderness over the Sacroiliac joint: right side / left side Range of motion: Flexion of the lumbar spine <60 degrees Range of motion: Extension of the lumbar spine <20 degrees Gaenslen's Test positive R / L Deysi test: positive right side / left side Thigh Thrust Test positive R / L Sacral Thrust Test positive R/ L Assessment and plan: Chronic neck pain secondary to radiculopathy, spondylosis with facet arthropathy without myelopathy Recommendation of cervical x ray M54.12. UDS fr 12/25/23 reviewed and consistent. Opiate/ narcotic agreement up to date. Ample supply of [place] 10/325mg #60 and Zanaflex 4mg #60 w 2 RF at this time. Referral awaiting Dr Sutherland re: possible CTS Contact information provided. All questions answered. I have spent less than 30 minutes on patient care today. Dr Ribeiro was available by phone for the evaluation of this patient. The time was used to review the medical records including relevant urine studies and Prescription history (MAPs), review of the available imaging, evaluation and examination of the patient, coordination of care with the medical staff and if applicable referring physicians, as well as creation of the medical record - Pain Location Bilateral Upper Back Non-Pharmacological Interventions: Heat, Ice, Inactivity Pharmacological Interventions: Epidural, PRN Medication, Scheduled Medication, Topical Medication PQRS Narrative: Narcotic Agreement Date Signed 08/14/23 Hx Alcohol Use (MH) No Home Medications: Ambulatory Orders Aspirin EC [Ecotrin Low Dose] 81 mg PO DAILY 12/05/22 Lidocaine 5% Patch [Lidoderm] 1 patch TOPICAL DAILY PRN 12/05/22 Nitroglycerin Sl Tabs [Nitrostat] 0.4 mg SUBLINGUAL Q5M PRN 12/05/22 Omeprazole [PriLOSEC] 20 mg PO AC-BID 12/05/22 metFORMIN HCL [Glucophage] 500 mg PO BID 12/05/22 Clopidogrel [Plavix] 75 mg PO DAILY 06/19/23 Linaclotide [Linzess] 290 mcg PO DAILY PRN 06/19/23 Metoprolol Succinate (ER) [Toprol Xl] 25 mg PO DAILY 06/19/23 [place]-3 Fatty Acids/Fish Oil [[place]-3 Fish Oil 1,200 mg Sfgl] 1 each PO BID 06/19/23 Rosuvastatin [Crestor] 20 mg PO DAILY 06/19/23 icosapent ethyL [Vascepa] 2 gm PO BID 06/19/23 HYDROcodone/APAP 10-325MG [[place] 10-325] 1 tab PO BID PRN 30 Days #60 tab 08/02/24 tiZANidine [Zanaflex] 4 mg PO Q6HR PRN 30 Days #90 tab 08/02/24 Controlled Substance Measures - Controlled Substance Measures Is patient prescribed a controlled substance at discharge?: Yes When asked, does pt state using other controlled substances?: No If prescribed controlled substance>3 days was MAPS reviewed?: Yes
== END ==
LOC: PNWHC3 10:40
PROVIDERS: ATTEND Specialist
DX: M50.123 Cervical disc disorder at C6-C7 level with radiculopathy (principal); M47.22 Other spondylosis with radiculopathy, cervical region
CPT/HCPCS: 72040; 99211

== ENCOUNTER → 2024-08-31 | Outpatient (CLI) | payer MEDICARE, OTHER ==
--- NOTE | 2024-08-31 15:02 | CT ---
EXAMINATION TYPE: CT cervical spine wo con CT DLP: 438.7 mGycm, Automated exposure control for dose reduction was used. DATE OF EXAM: 08/31/2024 2:51 PM COMPARISON: CT cervical spine 12/31/2022. CLINICAL INDICATION:Male, 74 years old with history of M54.12 RADICULOPATHY, CERVICAL REGION; [facility] in in neck x years. TECHNIQUE: Axial CT images from the skull base to the inferior aspect of T2 we obtained without intra venous contrast. Coronal and sagittal reformatted images were also reviewed. FINDINGS: Fracture: None. Osseous structures: Multilevel degenerative disc disease changes with endplate spurring and disc oste ophyte complex's. Disc space narrowing at C4-C5 and C5-C6. Vertebral alignment: Minimal retrolisthesis of C4 on C5. Spinal canal/Neural Foramina: Disc osteophyte complexes at C4-C5 and C5-C6 with at least mild spinal canal stenosis. Central disc protrusions at C2-C3 and C3-C4 with mild effacement of the anterior thec al sac. Mild right and moderate left neural foraminal stenosis secondary to uncovertebral joint hyper trophy at C4-C5. Mild bilateral neural foraminal stenosis at C5-C6 and C6-C7. Neck soft tissues: Prevertebral soft tissues are within normal limits. Other: The airway is patent. The lung apices are clear. IMPRESSION: 1. No evidence of cervical spine fracture. 2. Mild to moderate multilevel degenerative disc disease. Central disc protrusions at C2-C3 and C3-C4 with mild effacement of the anterior thecal sac. 3. Minimal retrolisthesis of C4 and C5. [facility], , 08/31/2024 3:00 PM
== END ==
LOC: RADCTMAIN 14:31
PROVIDERS: ATTEND Specialist
DX: M54.12 Radiculopathy, cervical region
CPT/HCPCS: 72125

== ENCOUNTER → 2024-09-13 | Outpatient (CLI) | payer MEDICARE, OTHER ==
[2024-09-13 08:53] VITALS: BP 107/72; PULSE 62; RESP 16
--- NOTE | 2024-09-15 07:52 | P.PAINPG ---
PQRS Measure Charge Sheet Comment: A 74 yr old male with a history of severe and chronic neck pain > 2 yrs secondary to radiculopathy, spondylosis with facet arthropathy without myelopathy presents today for evaluation CT cervical spine. Pain level is provoked at 7 /10 in intensity, constant, predominantly axial and localized in the cervicothoracic spine, sharp in character w occasional shooting towards the shoulders. Pain is provoked by lifting and hyperextension. Pain is alleviated with injections, medications, topical, PT x 5 wks which ended in Feb 2024, physician guided exercises/ stretches daily since Feb 2024, chiropractic treatments in 2020, heat, ice, repositioning and rest. Interventional pain procedures completed include BL MBB C4-C6 x2, BL TPIs T2-T8 x1 Patient is currently on [place] 10/325mg #60, Zanaflex Patient denies any side effects of the medication(s), denies excessive drowsiness or sleepiness, denies suicidal ideation and reports that the current pain medication is helping to control the pain and improve activities of daily living. Patient denies any motor or sensory deficits. Patient denies any fever or night sweats, denies any change in the bowel movements or urination. Physical Examination: -Constitutional: Cooperative. Not in acute distress . - Neurologic: Cranial nerve II to XII intact. No focal neurological deficits. - Psychatric: Alert & oriented x 3. Matching mood & appropriate affect. Judgment and insight intact. - Musculoskeletal: Cervical spine: Muscle bulk/ tone/ strength in the bilateral upper extremities normal Vertebral body tenderness to palpation over C6 Spurling test positive BL C6-C7 Distraction test positive Facet loading test positive over BL C4-C5, C5-C6 Thoracic spine Muscle bulk / tone/ strength in the bilateral paraspinal muscles normal Vertebral body tender to palpation over Taut bands w twitch response over BL T1-T6 Facet loading test positive TTP Lumbar spine: Motor bulk/ tone/ strength lower extremities , thigh and legs : 5/5 Deep tendon reflexes : Normal Knee Jerk. Normal Ankle Jerk . Vertebral body tenderness to palpation over Lumbar Facet Loading Test positive Straight Leg Raise: positive at 30 degrees right side/ left side Gaenslen's Test positive Sacral spine : Severe tenderness over the Sacroiliac joint: right side / left side Range of motion: Flexion of the lumbar spine <60 degrees Range of motion: Extension of the lumbar spine <20 degrees Gaenslen's Test positive R / L Deysi test: positive right side / left side Thigh Thrust Test positive R / L Sacral Thrust Test positive R/ L Imaging: CT non contrast cervical spine from 08/31/24 reviewed Assessment and plan: Chronic neck pain secondary to radiculopathy, spondylosis with facet arthropathy without myelopathy Recommendation of CÉSAR C6-C7 #1. Opiate/ narcotic agreement renewed 09/13/24. Ample supply of [place] 10/325mg #60 and Zanaflex 4mg #60 w 2 RF at this time. Referral awaiting Dr Sutherland re: possible CTS Contact information provided. All questions answered. I have spent less than 30 minutes on patient care today. Dr Ribeiro was available by phone for the evaluation of this patient. The time was used to review the medical records including relevant urine studies and Prescription history (MAPs), review of the available imaging, evaluation and examination of the patient, coordination of care with the medical staff and if applicable referring physicians, as well as creation of the medical record PQRS Narrative: Narcotic Agreement Date Signed 08/14/23 Hx Alcohol Use (MH) No Home Medications: Ambulatory Orders Aspirin EC [Ecotrin Low Dose] 81 mg PO DAILY 12/05/22 Lidocaine 5% Patch [Lidoderm] 1 patch TOPICAL DAILY PRN 12/05/22 Nitroglycerin Sl Tabs [Nitrostat] 0.4 mg SUBLINGUAL Q5M PRN 12/05/22 Omeprazole [PriLOSEC] 20 mg PO AC-BID 12/05/22 metFORMIN HCL [Glucophage] 500 mg PO BID 12/05/22 Clopidogrel [Plavix] 75 mg PO DAILY 06/19/23 Linaclotide [Linzess] 290 mcg PO DAILY PRN 06/19/23 Metoprolol Succinate (ER) [Toprol Xl] 25 mg PO DAILY 06/19/23 [place]-3 Fatty Acids/Fish Oil [[place]-3 Fish Oil 1,200 mg Sfgl] 1 each PO BID 06/19/23 Rosuvastatin [Crestor] 20 mg PO DAILY 06/19/23 icosapent ethyL [Vascepa] 2 gm PO BID 06/19/23 HYDROcodone/APAP 10-325MG [[place] 10-325] 1 tab PO BID PRN 30 Days #60 tab 08/02/24 tiZANidine [Zanaflex] 4 mg PO Q6HR PRN 30 Days #90 tab 08/02/24 Controlled Substance Measures - Controlled Substance Measures Is patient prescribed a controlled substance at discharge?: No
== END ==
LOC: PNWHC3 07:48
PROVIDERS: ATTEND Specialist
DX: M47.22 Other spondylosis with radiculopathy, cervical region (principal)
CPT/HCPCS: 99211

== ENCOUNTER 2024-10-19 11:27 | Day surgery (SDC) | payer MEDICARE, OTHER ==
[2024-10-18 08:33] VITALS: BMI 28.9
[2024-10-19 12:10] VITALS: TEMP 97.3
[2024-10-19 12:13] LABS: Glucose,Whole Blood 83 mg/dL (70-110)
[2024-10-19] MEDS ORDERED: IOPAMIDOL M200 10 ML VIAL ONE (13:19)
[2024-10-19] MEDS ORDERED: DEXAMETHASONE SOD PHOSPHATE 10 MG/ML 1 ML VIAL ONE (13:19)
--- NOTE | 2024-10-19 13:26 | P.PCN ---
Date of Procedure: 10/19/24 Procedure(s) Performed: . PROCEDURE 1. Cervical epidural steroid injection under fluoroscopic guidance, C6-7 (fluoroscopy images available in the radiology department ) 2. Cervical epidurogram. PREOPERATIVE DIAGNOSIS: 1- Cervical Degenerative Disc Diseases 2- Cervical radiculopathy. POSTOPERATIVE DIAGNOSIS: : 1- Cervical Degenerative Disc Diseases , 2- Cervical radiculopathy. ANESTHESIA: Local anesthesia with lidocaine 1% 3 ml only EBL 0 PROCEDURE INDICATION: The patient with neck pain and radiculitis unresponsive to conservative treatment consents for procedure. PROCEDURE DESCRIPTION / TECHNIQUE: The patient was seen and identified in the preoperative area. Risks, benefits, complications, including but not limited to infections ,bleeding , allergic reactions to the medications ,and not complete pain releife, and alternatives were discussed with the patient, the patient agr eed to proceed with the procedure and signed the consent. Patient was taken to the OR and time out was completed. The patient was placed in the prone position on the procedure table. A pillow was placed under the patients chest to increase the cervical interlaminar space. The cervical area was prepped and draped in the usual sterile fashion. Vital signs were closely monitored during the procedure. Using anterior-posterior fluoroscopy, the C6-7 interlaminar space was identified and the skin over this site was marked and then infiltrated with 1% lidocaine subcutaneously. Subsequently, a 20-gauge 3-1/2-inch Tuohy epidural needle was inserted and advanced toward the epidural space by means of the ``hanging-drop technique and guided by AP and lateral fluoroscopy. The correct needle position in the epidural space was verified with the injection of 2 mL of the water soluble contrast dye Isovue-200 and observing an excellent epidurogram with the epidural spread of the dye, after negative aspiration for blood and CSF and in the absence of paresthesias. then, mixture containing 15 mg Dexamethasone and 2 ml of preservative-free normal saline injected and a washout of epidurogram w as seen. Needle was withdrawn intact, skin was cleansed, and bandages were applied. Complications= none. Disposition= patient was placed in supine position and transferred to the recovery room area in stable condition and there was no evidence of upper or lower extremity motor or sensory deficit after the procedure patient was discharged from recovery room after discharge criteria met and home discharge instructions was given by the staff and patient will follow with the pain clinic in 2-4 weeks
--- NOTE | 2024-10-19 13:41 | FL ---
Intraoperative/procedural fluoroscopic services were provided for cervical epidural steroid injection . Total fluoroscopy time is 3.1 seconds with a total of 2 submitted images to PACS. Total DAP 0.08188 mGym2. Please see the operative note for further details. [facility], , 10/19/2024 1:38 PM
[2024-10-19 13:48] VITALS: BP 128/75; PULSE 65; RESP 18
== END 2024-10-19 14:05 | disposition home or self-care (01) ==
LOC: ORPAIN 11:27
PROVIDERS: ATTEND Specialist
DX: M50.10 Cervical disc disorder with radiculopathy, unspecified cervical region (principal)
CPT/HCPCS: 62321; J1100; Q9966

== ENCOUNTER 2024-11-12 00:47 | Emergency (ER) | payer MEDICARE, OTHER ==
[2024-11-12 00:56] VITALS: TEMP 97.2
[2024-11-12] MEDS: LIDOCAINE VISCOUS 2% 15 ML CUP MUCOUS MEM STA (01:30)
[2024-11-12 01:35] LABS: Basophils % (A) 0 %; Eosinophils # (A) 0.2 k/uL (0-0.7); Eosinophils % (A) 4 %; HGB 12.5 gm/dL (13.0-17.5); Lymphocytes # (A) 1.4 k/uL (1.0-4.8); Lymphocytes % (A) 21 %; MCH 27.2 pg (25.0-35.0); MCHC 31.9 g/dL (31.0-37.0); MCV 85.2 fL (80.0-100.0); Mean Platelet Volume 7.6; Monocytes # (A) 0.4 k/uL (0-1.0); Monocytes % (A) 6 %; Neutrophils # (A) 4.4 k/uL (1.3-7.7); Neutrophils % (A) 68 %; Platelet Count 176 k/uL (150-450); RBC 4.58 m/uL (4.30-5.90); WBC 6.4 k/uL (3.8-10.6)
[2024-11-12 02:48] LABS: ALT 21 U/L (4-49); AST 20 U/L (17-59); African American GFR (CKD) >90 (>60 ml/min/1.73 sqM); Albumin 4.1 g/dL (3.5-5.0); Alkaline Phosphatase 43 U/L (38-126); Anion Gap 6 mmol/L; Blood Urea Nitrogen 17 mg/dL (9-20); C Reactive Protein <0.5 mg/dL (<1.0); Calcium 9.5 mg/dL (8.4-10.2); Carbon Dioxide 25 mmol/L (22-30); Chloride 105 mmol/L (98-107); Glucose 114 mg/dL (74-99); Non-African American GFR(CKD) >90 (>60 ml/min/1.73 sqM); Potassium 4.2 mmol/L (3.5-5.1); Sodium 136 mmol/L (137-145); Total Bilirubin 0.4 mg/dL (0.2-1.3); Total Protein 6.3 g/dL (6.3-8.2)
[2024-11-12] MEDS: HYDROmorphone 0.5 MG/0.5 ML SYRINGE IVP STA ×3 (03:21→09:10)
--- NOTE | 2024-11-12 07:44 | CT ---
EXAMINATION TYPE: CT pelvis w con DATE OF EXAM: 11/12/2024 6:08 AM COMPARISON: None. CLINICAL INDICATION: Male, 74 years old with history of perianal pain, abd pain, TECHNIQUE: Contiguous axial scanning of the pelvis following administration of 100 ml Isovue 300 IV c ontrast. Delayed images through the bladder and coronal/sagittal reconstructions performed. CT DLP: 766.2 mGycm, Automated exposure control for dose reduction was used. FINDINGS: Generator device along the left posterior lower back with spinal stimulator leads extending up to on the [id number] before entering the spinal canal. There is prostate enlargement up to 6.0 cm. Some nodular areas of enhancement are noted within the pr ostate gland. A Rincon catheter is present within a circumferentially thickened and collapsed bladder. Mild perivesicular fat stranding is suggested. No abnormal fluid collection in the pelvis. A couple borderline sized inguinal lymph nodes measuring up to 1.5 cm short axis probably reactive/post inflammatory. No other pelvic lymphadenopathy. There is sigmoid diverticulosis. No pericolonic inflammatory change. Scattered mild/moderate atherosclerotic calcifications distal abdominal aorta and aortic bifurcation. Tiny hiatal hernia. Previous L4 laminectomy changes. Moderate degenerative disc disease L3-L4 and L4-L5 along with hypert rophic facet arthropathy. IMPRESSION: 1. PROSTATOMEGALY AT 6.0 CM WIDE. NODULAR AREAS OF ENHANCEMENT IN THE PROSTATE GLAND COULD REPRESENT FOCI OF BPH. CORRELATE WITH PSA VALUES AND ULTRASOUND IF INDICATED TO EXCLUDE FOCI OF PROSTATE CANCER . 2. A RINCON CATHETER IS IN PLACE WITHIN A COLLAPSED AND CIRCUMFERENTIALLY THICKENED BLADDER. THE BLADD ER WALL THICKENING MAY IN PART RELATE TO CHRONIC BLADDER WALL HYPERTROPHY. CORRELATE TO EXCLUDE CYSTI TIS. [facility], , 11/12/2024 7:41 AM
--- NOTE | 2024-11-12 08:02 | ED ---
General Adult HPI - General Chief complaint: Recheck/Abnormal Lab/Rx Stated complaint: abd pain Time Seen by Provider: 11/12/24 00:49 Source: patient, EMS Mode of arrival: EMS Limitations: no limitations - History of Present Illness Initial comments: This patient is a 74-year-old man who presents to have evaluation for perianal pain. The patient had hemorrhoidectomy performed approximately the days ago by physician through [facility]. The patient states that he has been having recurring pains. He has required emergency department visit now this is his third 1. The patient denies significant bleeding. He states that he has been prescribed small amounts of medication but runs out and then has recurrent pain. The patient is not scheduled to see his surgeon for another approximately 3 weeks. The patient has not had fever or chills. No abdominal pains. Onset/Timin -: week(s) Location: buttocks (Perianal) Radiation: non-radiation Quality: sharp Consistency: intermittent Improves with: none Worsens with: other (Bowel movement) Associated Symptoms: denies other symptoms Treatments Prior to Arrival: other (Prescription analgesic) - Related Data Home Medications Medication Instructions Recorded Confirmed Aspirin EC [Ecotrin Low Dose] 81 mg PO DAILY 12/05/22 10/18/24 Lidocaine 5% Patch [Lidoderm] 1 patch TOPICAL DAILY PRN 12/05/22 10/19/24 Nitroglycerin Sl Tabs [Nitrostat] 0.4 mg SUBLINGUAL Q5M PRN 12/05/22 10/18/24 Omeprazole [PriLOSEC] 20 mg PO AC-BID 12/05/22 10/19/24 metFORMIN HCL [Glucophage] 500 mg PO BID 12/05/22 10/19/24 Clopidogrel [Plavix] 75 mg PO DAILY 06/19/23 10/18/24 Linaclotide [Linzess] 290 mcg PO DAILY PRN 06/19/23 10/19/24 Metoprolol Succinate (ER) [Toprol 25 mg PO DAILY 06/19/23 10/19/24 Xl] [place]-3 Fatty Acids/Fish Oil 1 each PO BID 06/19/23 10/18/24 [[place]-3 Fish Oil 1,200 mg Sfgl] Rosuvastatin [Crestor] 20 mg PO DAILY 06/19/23 10/19/24 icosapent ethyL [Vascepa] 2 gm PO BID 06/19/23 10/19/24 Previous Rx's Medication Instructions Recorded HYDROcodone/APAP 10-325MG [[place] 1 tab PO BID PRN 30 Days #60 tab 08/02/24 10-325] tiZANidine [Zanaflex] 4 mg PO Q6HR PRN 30 Days #90 tab 08/02/24 oxyCODONE-APAP 7.5-325MG [Percocet 1 tab PO Q6HR PRN 3 Days #12 tab 11/12/24 7.5-325 mg] Allergies Allergy/AdvReac Type Severity Reaction Status Date / Time No Known Allergies Allergy Verified 10/19/24 12:05 Review of Systems ROS Statement: Those systems with pertinent positive or pertinent negative responses have been documented in the HPI. ROS Other: All systems not noted in ROS Statement are negative. Constitutional: Denies: fever, chills, weakness Respiratory: Denies: cough, dyspnea Cardiovascular: Denies: chest pain, palpitations, edema Gastrointestinal: Denies: abdominal pain, vomiting, diarrhea, constipation Genitourinary: Denies: dysuria, hematuria, testicular pain Skin: Denies: lesions Neurological: Denies: headache Hematological/Lymphatic: Denies: easy bleeding Past Medical History Past Medical History: Coronary Artery Disease (CAD), Chest Pain / Angina, Diabetes Mellitus, Hypertension, Myocardial Infarction (AL), Musculoskeletal Disorder Additional Past Medical History / Comment(s): DDD, NECK PAIN. Last Myocardial Infarction Date:: 05/13/23 History of Any Multi-Drug Resistant Organisms: None Reported Past Surgical History: Coronary Bypass/CABG, Heart Catheterization, Heart Catheterization With Stent, Joint Replacement Additional Past Surgical History / Comment(s): Total left knee replacement, states heart procedure with balloon, pain procedures, stents placed 05/13/23. Past Anesthesia/Blood Transfusion Reactions: No Reported Reaction Date of Last Stent Placement:: 05/13/23 Past Psychological History: No Psychological Hx Reported Smoking Status: Former smoker - Past Family History Father Family Medical History: Diabetes Mellitus Mother Family Medical History: Diabetes Mellitus General Exam Limitations: no limitations General appearance: alert, in no apparent distress Head exam: Present: atraumatic, normocephalic Eye exam: Present: normal appearance Respiratory exam: Present: normal lung sounds bilaterally. Absent: respiratory distress, wheezes, rales, rhonchi, stridor Cardiovascular Exam: Present: regular rate, normal rhythm, normal heart sounds. Absent: systolic murmur, diastolic murmur, rubs, gallop GI/Abdominal exam: Present: soft. Absent: distended, tenderness, guarding, rebound, rigid, mass Rectal exam: Present: other (The patient does have surgical wound which does not have abnormal erythema, warmth, or any purulent drainage. Unable to perform digital rectal exam due to tenderness) Extremities exam: Present: normal inspection, normal capillary refill Neurological exam: Present: alert Skin exam: Present: warm, dry, intact, normal color. Absent: rash Course Vital Signs 11/12/24 11/12/24 11/12/24 00:49 03:22 04:04 Temperature 97.2 F L Pulse Rate 60 76 71 Respiratory 20 18 16 Rate Blood Pressure 123/86 111/93 121/71 O2 Sat by Pulse 96 98 97 Oximetry 11/12/24 11/12/24 06:19 09:24 Temperature Pulse Rate 69 67 Respiratory 16 20 Rate Blood Pressure 122/76 117/84 O2 Sat by Pulse 96 97 Oximetry Medical Decision Making - Medical Decision Making The patient had CT scan of the pelvis which I interpreted as negative for evidence of perianal abscess Was pt. sent in by a medical professional or institution (, PA, PEDIATRIC LPN, urgent care, hospital, or snf...) When possible be specific @ -[No] Did you speak to anyone other than the patient for history (EMS, parent, family, police, friend...)? What history was obtained from this source @ -[No] Did you review nursing and triage notes (agree or disagree)? Why? @ -[I reviewed and agree with nursing and triage notes] Were old charts reviewed (outside hosp., previous admission, EMS record, old EKG, old radiological studies, urgent care reports/EKG's, snf records)? Report findings @ -[No old charts were reviewed] Differential Diagnosis (chest pain, altered mental status, abdominal pain women, abdominal pain men, vaginal bleeding, weakness, fever, dyspnea, syncope, headache, dizziness, GI bleed, back pain, seizure, CVA, palpatations, mental health, musculoskeletal)? @ -[not applicable] EKG interpreted by me (3pts min.). @ -[As above] X-rays interpreted by me (1pt min.). @ -[None done] CT interpreted by me (1pt min.). @ -[None done] U/S interpreted by me (1pt. min.). @ -[None done] What testing was considered but not performed or refused? (CT, X-rays, U/S, labs)? Why? @ -[None] What meds were considered but not given or refused? Why? @ -[None] Did you discuss the management of the patient with other professionals (professionals i.e. , PA, PEDIATRIC LPN, lab, RT, psych nurse, social media job titles, title lawyer, teacher, landing signal officer, case supervisor)? Give summary @ -[No] Was smoking cessation discussed for >3mins.? @ -[No] Was critical care preformed (if so, how long)? @ -[No] Were there social determinants of health that impacted care today? How? (Homelessness, low income, unemployed, alcoholism, drug addiction, transportation, low edu. Level, literacy, decrease access to med. care, longterm, rehab)? @ -[No] Was there de-escalation of care discussed even if they declined (Discuss DNR or withdrawal of care, Hospice)? DNR status @ -[No] What co-morbidities impacted this encounter? (DM, HTN, Smoking, COPD, CAD, Cancer, CVA, ARF, Chemo, Hep., AIDS, mental health diagnosis, sleep apnea, morbid obesity)? @ -[None] recent hemorrhoidectomy Was patient admitted / discharged? Hospital course, mention meds given and route, prescriptions, significant lab abnormalities, going to OR and other perti nent info. @ -[Patient is 74-year-old man here to have evaluation for postsurgical hemorrhoidectomy pain. Given the degree of tenderness and inability to perform digital rectal exam to assess for any internal mass, CT scan is ordered which does not reveal evidence of perianal abscess or postsurgical infection. At this point patient stable to follow-up with his surgeon. I did provide a few days of analgesic to enable him to see his physician. Undiagnosed new problem with uncertain prognosis? @ -[No] Drug Therapy requiring intensive monitoring for toxicity (Heparin, Nitro, Insulin, Cardizem)? @ -[No] Were any procedures done? @ -[No] Diagnosis/symptom? @ -[Post surgical pain Acute, or Chronic, or Acute on Chronic? @ -[Acute Uncomplicated (without systemic symptoms) or Complicated (systemic symptoms)? @ -Uncomplicated Side effects of treatment? @ -[No] Exacerbation, Progression, or Severe Exacerbation? @ -[No] Poses a threat to life or bodily function? How? (Chest pain, [place], AL, pneumonia, PE, COPD, DKA, ARF, appy, cholecystitis, CVA, Diverticulitis, Homicidal, Suicidal, threat to staff... and all critical care pts) @ -[No] All treatments are based on ideal body weight as in ED triage - Lab Data Result diagrams: 11/12/24 01:11/12/24: Lab Results 11/12/24 11/12/24 Range/Units :15 12: WBC 6.4 (3.8-10.6) k/uL RBC 4.58 (4.30-5.90) m/uL Hgb 12.5 L (13.0-17.5) gm/dL Hct 39.0 (39.0-53.0) % MCV 85.2 (80.0-100.0) fL MCH 27.2 (25.0-35.0) pg MCHC 31.9 (31.0-37.0) g/dL RDW 13.0 (11.5-15.5) % Plt Count 176 (150-450) k/uL MPV 7.6 Neutrophils % 68 % Lymphocytes % 21 % Monocytes % 6 % Eosinophils % 4 % Basophils % 0 % Neutrophils # 4.4 (1.3-7.7) k/uL Lymphocytes # 1.4 (1.0-4.8) k/uL Monocytes # 0.4 (0-1.0) k/uL Eosinophils # 0.2 (0-0.7) k/uL Basophils # 0.0 (0-0.2) k/uL Sodium 136 L (137-145) mmol/L Potassium 4.2 (3.5-5.1) mmol/L Chloride 105 (98-107) mmol/L Carbon Dioxide 25 (22-30) mmol/L Anion Gap 6 mmol/L BUN 17 (9-20) mg/dL Creatinine 0.72 (0.66-1.25) mg/dL Est GFR (CKD-EPI)AfAm >90 (>60 ml/min/1.73 sqM) Est GFR (CKD-EPI)NonAf >90 (>60 ml/min/1.73 sqM) Glucose 114 H (74-99) mg/dL Calcium 9.5 (8.4-10.2) mg/dL Total Bilirubin 0.4 (0.2-1.3) mg/dL AST 20 (17-59) U/L ALT 21 (4-49) U/L Alkaline Phosphatase 43 (38-126) U/L C-Reactive Protein <0.5 (<1.0) mg/dL Total Protein 6.3 (6.3-8.2) g/dL Albumin 4.1 (3.5-5.0) g/dL Disposition Clinical Impression: Postoperative pain Disposition: HOME SELF-CARE Condition: Good Instructions (If sedation given, give patient instructions): Hemorrhoidectomy (DC) Additional Instructions: call your surgeon to be seen about the postoperative pain Prescriptions: oxyCODONE-APAP 7.5-325MG [Percocet 7.5-325 mg] 1 tab PO Q6HR PRN 3 Days #12 tab PRN Reason: pain Is patient prescribed a controlled substance at d/c from ED?: Yes When asked, does pt state using other controlled substances?: No If prescribed controlled substance>3 days was MAPS reviewed?: Prescribed <3 Days If opioid is for acute pain is fill amount 7 days or less?: Yes If Rx opioid, was Start Talking consent form obtained?: Yes Referrals: Freddy Bianchi MD [Primary Care Provider] - 1-2 days
[2024-11-12 09:28] VITALS: BP 117/84; PULSE 67; RESP 20
== END 2024-11-12 09:28 | disposition home or self-care (01) ==
LOC: EC 00:47
DX: G89.18 Other acute postprocedural pain (principal); R10.9 Unspecified abdominal pain; Z87.891 Personal history of nicotine dependence
CPT/HCPCS: 36415; 80053; 85025; 86140; 72193; 99285; 96374; 96376 ×2; J1171; Q9967

== ENCOUNTER → 2024-12-01 | Outpatient (CLI) | payer MEDICARE, OTHER ==
[2024-12-01 10:44] VITALS: BP 113/74; PULSE 71; RESP 16; TEMP 98
--- NOTE | 2024-12-01 16:05 | P.PAINPG ---
PQRS Measure Charge Sheet Comment: A 74 yr old male with a history of severe and chronic neck pain > 2 yrs secondary to radiculopathy, spondylosis with facet arthropathy without myelopathy presents today for evaluation s/p CÉSAR C6-C7 #1 and medication refills. Pt states he experienced 60-70 % pain relief x 6 wks s/p procedure. Pain level is provoked at 7 /10 in intensity, intermittent, predominantly axial and localized in the cervicothoracic spine, sharp in character w occasional shooting towards the shoulders. Pain is provoked by lifting and hyperextension. Pain is alleviated with injections, medications, topical, PT x 5 wks which ended in Feb 2024, physician guided exercises/ stretches daily since Feb 2024, chiropractic treatments in 2020, heat, ice, repositioning and rest. Interventional pain procedures completed include BL MBB C4-C6 x2, BL TPIs T2-T8 x1, CÉSAR C6-C7 x1, SCS Implant Patient is currently on [place] 10/325mg #60, Zanaflex Patient denies any side effects of the medication(s), denies excessive drowsiness or sleepiness, denies suicidal ideation and reports that the current pain medication is helping to control the pain and improve activities of daily living. Patient denies any motor or sensory deficits. Patient denies any fever or night sweats, denies any change in the bowel movements or urination. Physical Examination: -Constitutional: Cooperative. Not in acute distress . - Neurologic: Cranial nerve II to XII intact. No focal neurological deficits. - Psychatric: Alert & oriented x 3. Matching mood & appropriate affect. Judgment and insight intact. - Musculoskeletal: Cervical spine: Muscle bulk/ tone/ strength in the bilateral upper extremities normal Vertebral body tenderness to palpation over C6 Spurling test positive BL C6-C7 Distraction test positive Facet loading test positive over BL C4-C5, C5-C6 Thoracic spine Muscle bulk / tone/ strength in the bilateral paraspinal muscles normal Vertebral body tender to palpation over Taut bands w twitch response over BL T1-T6 Facet loading test positive TTP Lumbar spine: Motor bulk/ tone/ strength lower extremities , thigh and legs : 5/5 Deep tendon reflexes : Normal Knee Jerk. Normal Ankle Jerk . Vertebral body tenderness to palpation over Lumbar Facet Loading Test positive Straight Leg Raise: positive at 30 degrees right side/ left side Gaenslen's Test positive Sacral spine : Severe tenderness over the Sacroiliac joint: right side / left side Range of motion: Flexion of the lumbar spine <60 degrees Range of motion: Extension of the lumbar spine <20 degrees Gaenslen's Test positive R / L Deysi test: positive right side / left side Thigh Thrust Test positive R / L Sacral Thrust Test positive R/ L Imaging: CT non contrast cervical spine from 08/31/24 reviewed Assessment and plan: Chronic neck pain secondary to radiculopathy, spondylosis with facet arthropathy without myelopathy Recommendation of CÉSAR C6-C7 #2 and medication management. Risks, benefits of procedure discussed and pt verbalized understanding. Opiate/ narcotic agreement renewed 09/13/24. Refill [place] 10/325mg #60 and Zanaflex 4mg #60 w 2 RF at this time. UDS collect at next visit. Referral awaiting Dr Sutherland re: possible CTS Contact information provided. All questions answered. *Pt underwent hemorrhoidectomy and has completed his short term supply of Percocet from his surgeon. He agrees he did not take the [place] and Percocet together. I have spent less than 30 minutes on patient care today. Dr Ribeiro was available by phone for the evaluation of this patient. The time was used to review the medical records including relevant urine studies and Prescription history (MAPs), review of the available imaging, evaluation and examination of the patient, coordination of care with the medical staff and if applicable referring physicians, as well as creation of the medical record - Pain Location Upper Back Non-Pharmacological Interventions: Position/Reposition Pharmacological Interventions: Discuss Pain Med Options Lower Back Non-Pharmacological Interventions: Position/Reposition Pharmacological Interventions: Discuss Pain Med Options PQRS Narrative: Narcotic Agreement Date Signed 09/13/24 Hx Alcohol Use (MH) No Home Medications: Ambulatory Orders Aspirin EC [Ecotrin Low Dose] 81 mg PO DAILY 12/05/22 Lidocaine 5% Patch [Lidoderm] 1 patch TOPICAL DAILY PRN 12/05/22 Nitroglycerin Sl Tabs [Nitrostat] 0.4 mg SUBLINGUAL Q5M PRN 12/05/22 Omeprazole [PriLOSEC] 20 mg PO AC-BID 12/05/22 metFORMIN HCL [Glucophage] 500 mg PO BID 12/05/22 Clopidogrel [Plavix] 75 mg PO DAILY 06/19/23 Linaclotide [Linzess] 290 mcg PO DAILY PRN 06/19/23 Metoprolol Succinate (ER) [Toprol Xl] 25 mg PO DAILY 06/19/23 [place]-3 Fatty Acids/Fish Oil [[place]-3 Fish Oil 1,200 mg Sfgl] 1 each PO BID 06/19/23 Rosuvastatin [Crestor] 20 mg PO DAILY 06/19/23 icosapent ethyL [Vascepa] 2 gm PO BID 06/19/23 HYDROcodone/APAP 10-325MG [[place] 10-325] 1 tab PO BID PRN 30 Days #60 tab 12/01/24 HYDROcodone/APAP 10-325MG [[place] 10-325] 1 tab PO BID PRN 30 Days #60 tab 12/01/24 HYDROcodone/APAP 10-325MG [[place] 10-325] 1 tab PO BID PRN 30 Days #60 tab 12/01/24 tiZANidine [Zanaflex] 4 mg PO Q6HR PRN 30 Days #90 tab 12/01/24 Controlled Substance Measures - Controlled Substance Measures Is patient prescribed a controlled substance at discharge?: Yes When asked, does pt state using other controlled substances?: No If prescribed controlled substance>3 days was MAPS reviewed?: Yes
== END ==
LOC: PNWHC3 10:10
PROVIDERS: ATTEND Specialist
DX: M47.22 Other spondylosis with radiculopathy, cervical region (principal)
CPT/HCPCS: 80307; 99212

== ENCOUNTER → 2025-03-02 | Outpatient (CLI) | payer MEDICARE, OTHER ==
[2025-03-02 10:32] VITALS: BP 108/67; PULSE 60; RESP 16; TEMP 98.3
--- NOTE | 2025-03-02 11:13 | XR ---
EXAMINATION TYPE: XR lumbar spine 2 or 3V DATE OF EXAM: 03/02/2025 CLINICAL HISTORY: pain TECHNIQUE: Three views of the lumbar spine are submitted. COMPARISON: CT pelvis 11/12/2024, CT lumbar spine 12/27/2022 FINDINGS: There are 5 lumbar type vertebral bodies identified. No acute fracture or dislocation. Mild retrolist hesis of L3 on L4. Vertebral body heights are within normal limits. Multilevel disc space narrowing w ith endplate sclerosis and anterior osteophytosis. The overlying soft tissue appears unremarkable. Le ft posterior back stimulator lead device with leads entering the spinal canal at the T12-L1 interspac e and extending superiorly within the spinal canal. Atherosclerotic calcification of aorta. IMPRESSION: 1. No acute fracture or dislocation is seen in the lumbar spine. 2. Moderate multilevel degenerative disc disease. [facility], , 03/02/2025 11:11 AM
--- NOTE | 2025-03-02 19:07 | P.PAINPG ---
PQRS Measure Charge Sheet Comment: A 74 yr old male with a history of severe and chronic neck pain > 2 yrs secondary to radiculopathy, spondylosis with facet arthropathy without myelopathy presents today for medication refills. Pain level is provoked at 7 /10 in intensity, intermittent, predominantly axial and localized in the cervicothoracic spine, sharp in character w occasional shooting towards the shoulders. Pain is provoked by lifting and hyperextension. Pain is alleviated with injections, medications, topical, PT x 5 wks which ended in Feb 2024, physician guided exercises/ stretches daily since Feb 2024, chiropractic treatments in 2020, heat, ice, repositioning and rest. Pt thinks the SCS implant is not working as well as it used to. Interventional pain procedures completed include BL MBB C4-C6 x2, BL TPIs T2-T8 x1, CÉSAR C6-C7 x1, Lumbar SCS Implant (Code Blue, 2021) Patient is currently on [place] 10/325mg #60, Zanaflex Patient denies any side effects of the medication(s), denies excessive drowsiness or sleepiness, denies suicidal ideation and reports that the current pain medication is helping to control the pain and improve activities of daily living. Patient denies any motor or sensory deficits. Patient denies any fever or night sweats, denies any change in the bowel movements or urination. Physical Examination: -Constitutional: Cooperative. Not in acute distress . - Neurologic: Cranial nerve II to XII intact. No focal neurological deficits. - Psychatric: Alert & oriented x 3. Matching mood & appropriate affect. Judgment and insight intact. - Musculoskeletal: Cervical spine: Muscle bulk/ tone/ strength in the bilateral upper extremities normal Vertebral body tenderness to palpation over C6 Spurling test positive BL C6-C7 Distraction test positive Facet loading test positive over BL C4-C5, C5-C6 Thoracic spine Muscle bulk / tone/ strength in the bilateral paraspinal muscles normal Vertebral body tender to palpation over Taut bands w twitch response over BL T1-T6 Facet loading test positive TTP Lumbar spine: Motor bulk/ tone/ strength lower extremities , thigh and legs : 5/5 Deep tendon reflexes : Normal Knee Jerk. Normal Ankle Jerk . Vertebral body tenderness to palpation over Lumbar Facet Loading Test positive Straight Leg Raise: positive at 30 degrees right side/ left side Gaenslen's Test positive Sacral spine : Severe tenderness over the Sacroiliac joint: right side / left side Range of motion: Flexion of the lumbar spine <60 degrees Range of motion: Extension of the lumbar spine <20 degrees Gaenslen's Test positive R / L Deysi test: positive right side / left side Thigh Thrust Test positive R / L Sacral Thrust Test positive R/ L Imaging: CT non contrast cervical spine from 08/31/24 reviewed Assessment and plan: Chronic neck pain secondary to radiculopathy, spondylosis with facet arthropathy without myelopathy Recommendation of CÉSAR C6-C7 #2 and medication management. Risks, benefits of procedure discussed and pt verbalized understanding. Opiate/ narcotic agreement renewed 09/13/24. Discontinue [place] 10/325mg #60, replace w Percocet 7.5/325gm #90 w 1 RF and Zanaflex 4mg #60 w 1 RF at this time. UDS collected 03/02/25. Lumbar x ray for SCS placement M50.830A, M54.16. Referral awaiting Dr Sutherland re: possible CTS Contact information provided. All questions answered. I have spent less than 30 minutes on patient care today. Dr Ribeiro was available by phone for the evaluation of this patient. The time was used to review the medical records including relevant urine studies and Prescription history (MAPs), review of the available imaging, evaluation and examination of the patient, coordination of care with the medical staff and if applicable referring physicians, as well as creation of the medical record - Pain Location Upper Back Non-Pharmacological Interventions: Heat, Ice Pharmacological Interventions: Medication PQRS Narrative: Narcotic Agreement Date Signed 09/13/24 Hx Alcohol Use (MH) No Home Medications: Ambulatory Orders Aspirin EC [Ecotrin Low Dose] 81 mg PO DAILY 12/05/22 Lidocaine 5% Patch [Lidoderm] 1 patch TOPICAL DAILY PRN 12/05/22 Nitroglycerin Sl Tabs [Nitrostat] 0.4 mg SUBLINGUAL Q5M PRN 12/05/22 Omeprazole [PriLOSEC] 20 mg PO AC-BID 12/05/22 metFORMIN HCL [Glucophage] 500 mg PO BID 12/05/22 Clopidogrel [Plavix] 75 mg PO DAILY 06/19/23 Linaclotide [Linzess] 290 mcg PO DAILY PRN 06/19/23 Metoprolol Succinate (ER) [Toprol Xl] 25 mg PO DAILY 06/19/23 [place]-3 Fatty Acids/Fish Oil [[place]-3 Fish Oil 1,200 mg Sfgl] 1 each PO BID 06/19/23 Rosuvastatin [Crestor] 20 mg PO DAILY 06/19/23 icosapent ethyL [Vascepa] 2 gm PO BID 06/19/23 oxyCODONE-APAP 7.5-325MG [Percocet 7.5-325 mg] 1 tab PO TID PRN 30 Days #90 tab 03/02/25 oxyCODONE-APAP 7.5-325MG [Percocet 7.5-325 mg] 1 tab PO TID PRN 30 Days #90 tab 03/02/25 tiZANidine [Zanaflex] 4 mg PO Q6HR PRN 30 Days #90 tab 03/02/25 Controlled Substance Measures - Controlled Substance Measures Is patient prescribed a controlled substance at discharge?: Yes When asked, does pt state using other controlled substances?: No If prescribed controlled substance>3 days was MAPS reviewed?: Yes If Rx opioid, was Start Talking consent form obtained?: Yes Was information provided regarding opioid addiction?: Yes
== END ==
LOC: PNWHC3 09:38
PROVIDERS: ATTEND Specialist
DX: M47.22 Other spondylosis with radiculopathy, cervical region (principal); M51.369 Other intervertebral disc degeneration, lumbar region without mention of lumbar back pain or lower extremity pain; G89.29 Other chronic pain
CPT/HCPCS: 72100; 99212

== ENCOUNTER → 2025-04-27 | Outpatient (CLI) | payer MEDICARE, OTHER ==
[2025-04-27 10:38] VITALS: BP 113/76; PULSE 69; RESP 18; TEMP 97.9
--- NOTE | 2025-04-27 16:04 | P.PAINPG ---
PQRS Measure Charge Sheet Comment: A 74 yr old male with a history of severe and chronic neck pain > 2 yrs secondary to radiculopathy, spondylosis with facet arthropathy without myelopathy presents today for medication refills. Pain level is provoked at 7-8 /10 in intensity, intermittent, predominantly axial and localized in the thoracolumbar spine, sharp in character w occasional shooting towards the LEs. Pain is provoked by lifting and hyperextension. Pain is alleviated with injections, medications, topical, PT x 5 wks (cerv) which ended in Feb 2024, physician guided exercises/ stretches daily since Feb 2024 (cerv), chiropractic treatments (lumbar) semi monthly since Feb 2025 which he is currently in, heat, ice, repositioning and rest. Pt thinks the SCS implant is not working as well as it used to. Interventional pain procedures completed include BL MBB C4-C6 x2, BL TPIs T2-T8 x1, CÉSAR C6-C7 x1, Lumbar SCS Implant ([employer], 2021) Patient is currently on Percocet 7.5/325gm #90, Zanaflex 4mg #60 Patient denies any side effects of the medication(s), denies excessive drowsiness or sleepiness, denies suicidal ideation and reports that the current pain medication is helping to control the pain and improve activities of daily living. Patient denies any motor or sensory deficits. Patient denies any fever or night sweats, denies any change in the bowel movements or urination. Physical Examination: -Constitutional: Cooperative. Not in acute distress . - Neurologic: Cranial nerve II to XII intact. No focal neurological deficits. - Psychatric: Alert & oriented x 3. Matching mood & appropriate affect. Judgment and insight intact. - Musculoskeletal: Cervical spine: Muscle bulk/ tone/ strength in the bilateral upper extremities normal Vertebral body tenderness to palpation over C6 Spurling test positive BL C6-C7 Distraction test positive Facet loading test positive over BL C4-C5, C5-C6 Thoracic spine Muscle bulk / tone/ strength in the bilateral paraspinal muscles normal Vertebral body tender to palpation over Taut bands w twitch response over BL T1-T6 Facet loading test positive TTP Lumbar spine: Motor bulk/ tone/ strength lower extremities , thigh and legs : 5/5 Deep tendon reflexes : Normal Knee Jerk. Normal Ankle Jerk . Vertebral body tenderness to palpation over Lumbar Facet Loading Test positive Straight Leg Raise: positive at 30 degrees right side/ left side Gaenslen's Test positive Sacral spine : Severe tenderness over the Sacroiliac joint: right side / left side Range of motion: Flexion of the lumbar spine <60 degrees Range of motion: Extension of the lumbar spine <20 degrees Gaenslen's Test positive R / L Deysi test: positive right side / left side Thigh Thrust Test positive R / L Sacral Thrust Test positive R/ L Imaging: CT non contrast cervical spine from 08/31/24 reviewed X ray lumbar spine from 03/02/25 reviewed Assessment and plan: Chronic neck pain secondary to radiculopathy, C5-C7 spondylosis with facet arthropathy without myelopathy Recommendation of CÉSAR C6-C7 #1 and medication management. Risks, benefits of procedure discussed and pt verbalized understanding. Opiate/ narcotic agreement renewed 09/13/24. Percocet 7.5/325gm #90 and Zanaflex 4mg #60 w RF . UDS from 12/01/24 reviewed and consistent. Would benefit from Lumbar MRI non contrast for possible SCS placement M54.16 which is safe w current SCS from [employer] per rep [place] as long as it is adjusted to MRI MODE. Pt aware. Referral awaiting Dr Sutherland re: possible CTS Contact information provided. All questions answered. I have spent less than 30 minutes on patient care today. Dr Ribeiro was available by phone for the evaluation of this patient. The time was used to review the medical records including relevant urine studies and Prescription history (MAPs), review of the available imaging, evaluation and examination of the patient, coordination of care with the medical staff and if applicable referring physicians, as well as creation of the medical record PQRS Narrative: Narcotic Agreement Date Signed 09/13/24 Hx Alcohol Use (MH) No Home Medications: Ambulatory Orders Aspirin EC [Ecotrin Low Dose] 81 mg PO DAILY 12/05/22 Lidocaine 5% Patch [Lidoderm] 1 patch TOPICAL DAILY PRN 12/05/22 Nitroglycerin Sl Tabs [Nitrostat] 0.4 mg SUBLINGUAL Q5M PRN 12/05/22 Omeprazole [PriLOSEC] 20 mg PO AC-BID 12/05/22 metFORMIN HCL [Glucophage] 500 mg PO BID 12/05/22 Clopidogrel [Plavix] 75 mg PO DAILY 06/19/23 Linaclotide [Linzess] 290 mcg PO DAILY PRN 06/19/23 Metoprolol Succinate (ER) [Toprol Xl] 25 mg PO DAILY 06/19/23 Truro-3 Fatty Acids/Fish Oil [Truro-3 Fish Oil 1,200 mg Sfgl] 1 each PO BID 06/19/23 Rosuvastatin [Crestor] 20 mg PO DAILY 06/19/23 icosapent ethyL [Vascepa] 2 gm PO BID 06/19/23 oxyCODONE-APAP 7.5-325MG [Percocet 7.5-325 mg] 1 tab PO TID PRN 30 Days #90 tab 03/02/25 oxyCODONE-APAP 7.5-325MG [Percocet 7.5-325 mg] 1 tab PO TID PRN 30 Days #90 tab 03/02/25 oxyCODONE-APAP 7.5-325MG [Percocet 7.5-325 mg] 1 tab PO TID PRN 30 Days #90 tab 03/02/25 oxyCODONE-APAP 7.5-325MG [Percocet 7.5-325 mg] 1 tab PO TID PRN 30 Days #90 tab 03/02/25 tiZANidine [Zanaflex] 4 mg PO Q6HR PRN 30 Days #90 tab 03/02/25 tiZANidine [Zanaflex] 4 mg PO TID PRN 30 Days #90 tab 03/02/25 Controlled Substance Measures - Controlled Substance Measures Is patient prescribed a controlled substance at discharge?: Yes When asked, does pt state using other controlled substances?: No If prescribed controlled substance>3 days was MAPS reviewed?: Yes
== END ==
LOC: PNWHC3 10:10
PROVIDERS: ATTEND Specialist
DX: M47.22 Other spondylosis with radiculopathy, cervical region (principal); G89.29 Other chronic pain
CPT/HCPCS: 99211

== ENCOUNTER 2025-06-16 09:32 | Day surgery (SDC) | payer MEDICARE ==
[2025-06-13 09:54] VITALS: BMI 31.9
[2025-06-16] MEDS ORDERED: LACTATED RINGERS 1,000 ML IV SCH (09:51)
[2025-06-16 09:59] VITALS: RESP 16; TEMP 97.6
[2025-06-16 10:11] LABS: Glucose,Whole Blood 89 mg/dL (70-110)
[2025-06-16] MEDS ORDERED: IOPAMIDOL M200 10 ML VIAL ONE (11:35)
[2025-06-16] MEDS ORDERED: DEXAMETHASONE SOD PHOSPHATE 10 MG/ML 1 ML VIAL ONE (11:35)
--- NOTE | 2025-06-16 11:45 | P.PCN ---
Date of Procedure: 06/16/25 Procedure(s) Performed: PROCEDURE 1. Cervical epidural steroid injection under fluoroscopic guidance, C6-7 (fluoroscopy images available in the radiology department ) 2. Cervical epidurogram. PREOPERATIVE DIAGNOSIS: 1- Cervical Degenerative Disc Diseases 2- Cervical radiculopathy. POSTOPERATIVE DIAGNOSIS: : 1- Cervical Degenerative Disc Diseases , 2- Cervical radiculopathy. ANESTHESIA: Local anesthesia with lidocaine 1% 3 ml only EBL 0 PROCEDURE INDICATION: The patient with neck pain and radiculitis unresponsive to conservative treatment consents for procedure. PROCEDURE DESCRIPTION / TECHNIQUE: The patient was seen and identified in the preoperative area. Risks, benefits, complications, including but not limited to infections ,bleeding , allergic reactions to the medications ,and not complete pain releife, and alternatives were discussed with the patient, the patient agreed to proceed with the procedure and signed the consent. Patient was taken to the OR and time out was completed. The patient was placed in the prone position on the procedure table. A pillow was placed under the patients chest to increase the cervical interlaminar space. The cervical area was prepped and draped in the usual sterile fashion. Vital signs were closely monitored during the procedure. Using anterior-posterior fluoroscopy, the C6-7 interlaminar space was identified and the skin over this site was marked and then infiltrated with 1% lidocaine subcutaneously. Subsequently, a 20-gauge 3-1/2-inch Tuohy epidural needle was inserted and advanced toward the epidural space by means of the ``hanging-drop technique and guided by AP and lateral fluoroscopy. The correct needle position in the epidural space was verified with the injection of 2 mL of the water soluble contrast dye [id number] and observing an excellent epidurogram with the epidural spread of the dye, after negative aspiration for blood and CSF and in the absence of paresthesias. then, mixture containing 15 mg Dexamethasone and 2 ml of preservative-free normal saline injected and a washout of epidurogram was seen. Needle was withdrawn intact, skin was cleansed, and bandages were applied. Complications= none. Disposition= patient was placed in supine position and transferred to the recovery room area in stable condition and there was no evidence of upper or lower extremity motor or sensory deficit after the procedure patient was discharged from recovery room after discharge criteria met and home discharge instructions was given by the staff and patient will follow with the pain clinic in 2-4 weeks
[2025-06-16 12:08] VITALS: BP 120/86; PULSE 62
--- NOTE | 2025-06-16 12:24 | FL ---
Fluoroscopy History: FL guided pain mgmt statistic CERVICAL EPIDURAL STEROID INJECTION FLUORO TIME: 3SEC DAP: [id number] [facility], , 06/16/2025 12:22 PM
== END 2025-06-16 12:12 | disposition home or self-care (01) ==
LOC: ORPAIN 09:32
PROVIDERS: ATTEND Specialist
DX: M50.123 Cervical disc disorder at C6-C7 level with radiculopathy (principal)
CPT/HCPCS: 62321; J1100; Q9966